=== PATIENT | female | born 1945 | race Caucasian/White ===

== ENCOUNTER 2016-09-27 18:18 | Emergency (ER) | payer MEDICARE ==
[~2016-09-27] VITALS: Ht 180.3 cm; Wt 60.9 kg
[~2016-09-27 18:18] MED LIST: HYDR-3535 PO; KCL10C PO; LEVA750T PO; MAGN400 PO; MELO15 PO; METR-1 PO
[2016-09-27 18:20] VITALS: BP 208/96; PULSE 74; RESP 20; TEMP 97.7; O2SAT 96
--- NOTE | 2016-09-27 18:39 | PD ---
HPI Chief Complaint: Skin Problem Time Seen by Provider: 18:39 Travel History International Travel<30 days: No Contact w/Intl Traveler<30days: No Traveled to known affect area: No History of Present Illness HPI 70-year-old female with history of alcoholism, bilateral lower extremity edema, chronic pain secondary to remote back fractures, presents to the emergency department for evaluation of discoloration on her buttocks. Patient is followed by home health nurse. She noticed the hyperpigmentation on the patient 's buttocks with some bumps. She sent pictures to the patient's primary care provider who advised she come to the emergency department. Patient denies any pain associated with the buttock however she states she always has back pain and rates that pain at 8/10. She has had no fever or chills. Denies any changes in bowel or bladder. States that she was fine until she found out she had come the emergency department. She has no other symptoms to report. PFSH Past Medical History Arthritis: Yes (SPINE) Autoimmune Disease: No Blood Disorders: No Anxiety: No Depression: No Cancer: No Cardiovascular Problems: No High Cholesterol: No Diabetes: No Endocrine: No Genitourinary: No Immune Disorder: No Musculoskeletal: Yes (degenerative disc disease with chronic low back pain) Neurologic: No Psychiatric: No Reproductive: No Respiratory: No Thyroid Disease: No ?: Not Past Surgical History Abdominal Surgery: No Body Medical Devices: tamika breast implants Cardiac Surgery: No Ear Surgery: No Endocrine Surgery: No Eye Surgery: No Genitourinary Surgery: No Gynecologic Surgery: Yes (hysterectomy) Hysterectomy: Yes Oral Surgery: No Thoracic Surgery: No Social History Alcohol Use: No Tobacco Use: No Substance Use: No Allergies-Medications (Allergen,Severity, Reaction): Coded Allergies: Darvocet-N 100 (Verified Allergy, Severe, nauseated, 09/27/16) when taking around the clock prn Ibuprofen (Verified Allergy, Severe, n/v, 09/27/16) when taken around the clock ok when just occasional Reported Meds & Prescriptions Reported Meds & Active Scripts Active Reported Potassium Chloride ER (Potassium Chloride) 10 Meq Cap 10 Meq PO BID Lortab (Hydrocodone-Acetaminophen) 10-325 Mg Tab 1 Tab PO Q6H PRN Review of Systems Except as stated in HPI: all other systems reviewed are Neg Physical Exam Narrative GENERAL: Chronically ill-appearing female patient, in no acute distress. SKIN: Warm and dry. HEAD: Atraumatic. Normocephalic. EYES: Pupils equal and round. No scleral icterus. No injection or drainage. ENT: No nasal bleeding or discharge. Mucous membranes pink and moist. NECK: Trachea midline. No JVD. CARDIOVASCULAR: Regular rate and rhythm. No murmur appreciated. RESPIRATORY: No accessory muscle use. Coarse to auscultation. Breath sounds equal bilaterally. GASTROINTESTINAL: Abdomen soft, non-tender. Normoactive bowel sounds. MUSCULOSKELETAL: No obvious deformities. No clubbing. No cyanosis. No edema. NEUROLOGICAL: Awake and alert. No obvious cranial nerve deficits. Motor grossly within normal limits. Normal speech. PSYCHIATRIC: Depressed mood and affect; Data Data Last Documented VS Vital Signs Date Time Temp Pulse Resp B/P Pulse Ox O2 Delivery O2 Flow Rate FiO2 09/27/16 19:02 74 18 09/27/16 18:20 97.7 208/96 96 Room Air 9 Orders Complete Blood Count With Diff (09/27/16 19:14) Prothrombin Time / Inr (Pt) (09/27/16 19:14) Act Partial Throm Time (Ptt) (09/27/16 19:14) Lactic Acid Sepsis Protocol (09/27/16 19:14) Urinalysis - C+S If Indicated (09/27/16 19:14) Chest, Single Ap (09/27/16 19:14) Basic Metabolic Panel (Bmp) (09/27/16 19:14) MDM Medical Decision Making Medical Screen Exam Complete: Yes Emergency Medical Condition: Yes Medical Record Reviewed: Yes Differential Diagnosis Hyperpigmentation versus pressure ulcer versus contact dermatitis versus wound infection versus sepsis Narrative Course 70-year-old female presents to emergency department for evaluation. Patient appears overall without distress. Her vital signs are stable. She does have area of hyperpigmentation on the buttock that has a cream over it so it is difficult to assess how here in triage. She appears chronically ill and has coarse breath sounds. Lab work is initiated for further evaluation of possible infection. Once a medical bed becomes available, patient will be transferred and care assumed by that provider. Condition: Stable Ivory Herrera Sep 27, 2016 18:39
[2016-09-27] MEDS ORDERED: POTA10CA PO (19:09)
[2016-09-27] MEDS ORDERED: HYDR-3535 PO (19:09)
--- NOTE | 2016-09-27 19:38 | RADRPT ---
EXAM DATE/TIME: 09/27/2016 19:28 [facility] COMPARISON: SPINE LUMBAR LTD (AP & LAT), May 22, 2013, 20:17. CHEST SINGLE AP, October 28, 2015, 4:47. INDICATIONS : Back pain. Cough. MEDICAL HISTORY : None. SURGICAL HISTORY : None. ENCOUNTER: Initial ACUITY: 2 days PAIN SCORE: 5/10 LOCATION: Bilateral back FINDINGS: No infiltrate, effusion or pneumothorax demonstrated. Heart size within normal limits. Thoracic aorta is tortuous. Kyphoplasty at T12 again noted. CONCLUSION: No evidence of acute cardiopulmonary disease. Rashid Murillo MD on September 27, 2016 at 19:35 Board Certified Radiologist. This report was verified electronically.
[2016-09-27 19:44] LABS: AUTOMATED NEUTROPHIL # 3.6 TH/MM3 (1.8-7.7); BASOPHIL # 0.1 TH/MM3 (0-0.2); BASOPHIL % 0.9 % (0.0-2.0); EOSINOPHIL # 0.3 TH/MM3 (0-0.4); EOSINOPHIL % 4.7 % (0.0-4.0); HEMATOCRIT 40.2 % (35.0-46.0); HEMO FLAGS DIFF FINAL; LYMPH % 30.1 % (9.0-44.0); MEAN CELL VOLUME 105.8 FL (80.0-100.0); MEAN CORPUSCULAR HEMOGLOBIN 36.8 PG (27.0-34.0); MEAN CORPUSCULAR HGB CONC 34.7 % (32.0-36.0); MONO % 9.5 % (0.0-8.0); NEUT % 54.8 % (16.0-70.0); PLATELET COUNT 269 TH/MM3 (150-450); RED CELL DISTRIBUTION WIDTH 19.4 % (11.6-17.2); WHITE BLOOD COUNT 6.6 TH/MM3 (4.0-11.0)
[2016-09-27 19:47] LABS: APTT (PATIENT) 30.8 SEC (24.3-30.1); PROTHROMBIN TIME - PATIENT 10.9 SEC (9.8-11.6)
--- NOTE | 2016-09-27 19:55 | PD ---
Physical Exam Time Seen by Provider: 19:53 Narrative 70-year-old female with history of chronic low back pain presents to the emergency department for evaluation of sacral skin wound. The patient states that 2 weeks ago she noticed some irritation and discomfort in her sacral region. The patient's states that one week ago he noticed the area was red and appeared irritated. States that she has a home health nurse who checks on her and today took a picture of the area and since it to her PCP Dr. García who sent her here to the emergency department for further evaluation of this skin abnormality. The patient has a history of chronic low back pain and right hip pain, she is status post kyphoplasty, right hip replacement and right knee arthroscopic surgery. She states that she has chronic pain in these locations that she's been dealing with for years. States that she does not ambulate well or frequently due to her pain and therefore sits on the couch for long periods of time. States that over the past few weeks she is also accidentally urinated on herself more frequently because she is unable to get up quickly enough to get to the bathroom. She denies any fever, chills, nausea , vomiting, chest pain, shortness of breath, abdominal pain, burning with urination, painful urination. Patient's states that they have been applying zinc oxide to the area for the past few days. He states that he thinks this has improved skin irritation. No other complaints. GENERAL: Well-nourished and well-developed female patient in no acute distress. SKIN: Warm and dry. There is an area of erythema to the sacrum approximately 9 cm in diameter. There are 4 small 0.5 cm crusted lesions within this area of erythema. There is no open wound or ulceration. No tenderness to palpation. No discharge or drainage. HEAD: Normocephalic and atraumatic. EYES: No injection, drainage, or hyphema noted. PERRLA. EOMI. ENT: No nasal drainage noted. Oropharynx is clear. NECK: Supple and the trachea is midline. CARDIOVASCULAR: Regular rate and rhythm. RESPIRATORY: Breath sounds are equal bilaterally with no accessory muscle use, wheezing, rhonchi, or crackles. GASTROINTESTINAL: Abdomen is soft, non-tender, and nondistended. MUSCULOSKELETAL: No obvious deformities, swelling, cyanosis, or ecchymosis is present throughout the upper and lower extremities. Patient has full range of motion without any signs of neurovascular compromise. NEUROLOGICAL: Awake, alert, and oriented. Normal speech and gait. Cranial nerves are grossly intact. Data Data Last Documented VS Vital Signs Date Time Temp Pulse Resp B/P Pulse Ox O2 Delivery O2 Flow Rate FiO2 09/27/16 19:02 74 18 09/27/16 18:20 97.7 208/96 96 Room Air 9 Orders Complete Blood Count With Diff (09/27/16 19:14) Prothrombin Time / Inr (Pt) (09/27/16 19:14) Act Partial Throm Time (Ptt) (09/27/16 19:14) Lactic Acid Sepsis Protocol (09/27/16 19:14) Urinalysis - C+S If Indicated (09/27/16 19:14) Chest, Single Ap (09/27/16 19:14) Basic Metabolic Panel (Bmp) (09/27/16 19:14) Labs Laboratory Tests Test 09/27/16 09/27/16 19:30 20:00 White Blood Count 6.6 TH/MM3 Red Blood Count 3.80 MIL/MM3 Hemoglobin 14.0 GM/DL Hematocrit 40.2 % Mean Corpuscular Volume 105.8 FL Mean Corpuscular Hemoglobin 36.8 PG Mean Corpuscular Hemoglobin 34.7 % Concent Red Cell Distribution Width 19.4 % Platelet Count 269 TH/MM3 Mean Platelet Volume 9.5 FL Neutrophils (%) (Auto) 54.8 % Lymphocytes (%) (Auto) 30.1 % Monocytes (%) (Auto) 9.5 % Eosinophils (%) (Auto) 4.7 % Basophils (%) (Auto) 0.9 % Neutrophils # (Auto) 3.6 TH/MM3 Lymphocytes # (Auto) 2.0 TH/MM3 Monocytes # (Auto) 0.6 TH/MM3 Eosinophils # (Auto) 0.3 TH/MM3 Basophils # (Auto) 0.1 TH/MM3 CBC Comment DIFF FINAL Differential Comment Prothrombin Time 10.9 SEC Prothromb Time International 1.0 RATIO Ratio Activated Partial 30.8 SEC Thromboplast Time Sodium Level 138 MEQ/L Potassium Level 3.2 MEQ/L Chloride Level 99 MEQ/L Carbon Dioxide Level 31.9 MEQ/L Anion Gap 7 MEQ/L Blood Urea Nitrogen 4 MG/DL Creatinine 0.47 MG/DL Estimat Glomerular Filtration 131 ML/MIN Rate Random Glucose 95 MG/DL Lactic Acid Level 0.8 mmol/L Calcium Level 9.1 MG/DL Urine Color YELLOW Urine Turbidity CLEAR Urine pH 6.5 Urine Specific [place] 1.006 Urine Protein NEG mg/dL Urine Glucose (UA) NEG mg/dL Urine Ketones NEG mg/dL Urine Occult Blood NEG Urine Nitrite NEG Urine Bilirubin NEG Urine Urobilinogen LESS THAN 2.0 MG/DL Urine Leukocyte Esterase NEG Urine WBC 1 /hpf Urine Squamous Epithelial <1 /hpf Cells Microscopic Urinalysis Comment CATH-CULT NOT IND MDM Supervised Visit with JUAN DIEGO: No Differential Diagnosis Skin breakdown versus ulceration versus dermatitis Narrative Course 70-year-old female presents to the emergency department for evaluation of skin irritation to sacral region for one week. Patient is afebrile, vital signs are stable. On physical examination she has only slight skin breakdown to the sacrum with no ulceration or wound. Patient was seen by provider in triage, please see their documentation. The provider in triage initiated workup by ordering lab work. CBC is unremarkable. BMP shows mild hypokalemia with a potassium of 3.2. This will be repleted with 40 mEq orally. Lactic acid is 0.8. Coags are unremarkable. Urinalysis is unremarkable. I had an extensive discussion with the patient and her about increasing her ambulation and rolling her more frequently on her side to prevent worsening ulceration. Discussed proper wound care techniques, advised to continue the zinc oxide. Advised to get a bedside commode so that she does not sit in a wet diaper for long periods of time rather is able to have easier access to using the toilet. The labs are all reassuring and there is no sign of acute infection area she does not require any antibiotic therapy at this time. Discussed signs and symptoms of when to return to the emergency department such as worsening redness, fever, chills. The patient and verbalized understanding and agreement with treatment plan. I discussed the case with my attending physician Dr. Meneses who is aware of the patients history, physical examination findings, and treatment plan. Diagnosis Primary Impression: Ulcer of sacral region, stage 1 Referrals: Primary Care Physician Patient Instructions: General Instructions, How to Prevent Pressure Ulcers (ED) , Pressure Ulcer (ED) Additional Instruction: Try to turn more frequently and alleviate pressure on your bottom. Try to keep area clean and dry. Follow-up with your Primary Care Physician. Return to the ED for any acute worsening of symptoms. Med/Other Pt SpecificInfo: No Change to Meds Disposition: 01 DISCHARGE HOME Condition: Stable Olga Wiseman Sep 27, 2016 19:55
[2016-09-27 20:05] LABS: BLOOD, URINE NEG (NEG); GLUCOSE,URINE NEG (NEG); KETONE, URINE NEG (NEG); NITRITE,URINE NEG (NEG); PH, URINE 6.5 (5.0-8.5); SQUAMOUS EPITHELIAL CELL URINE <1 /hpf (0-5); URINE COLOR YELLOW (YELLW/STRAW)
[2016-09-27 20:09] LABS: BICARBONATE 31.9 MEQ/L (21.0-32.0); POTASSIUM 3.2 MEQ/L (3.5-5.1)
[2016-09-27 20:13] LABS: COMMENT (UR) CATH-CULT NOT IND; CULTURE IF INDICATED CATH CULTURE NOT IND
== END 2016-09-27 20:39 | disposition home or self-care (01) ==
LOC: NEPC 18:18
DX: L98.419 Non-pressure chronic ulcer of buttock with unspecified severity (principal)
CPT/HCPCS: 71010; 80048; 81001; 83605; 85025; 85610; 85730

== ENCOUNTER 2016-11-30 12:24 | Inpatient (IN) | payer MEDICARE ==
[2016-11-30] VITALS (7 sets, daily range): BP systolic 135–181; BP diastolic 61–91; PULSE 77–97; RESP 18–20; TEMP 98.1–98.3; O2SAT 91–97
[~2016-11-30] VITALS: Ht 180.3 cm; Wt 65.2 kg
[~2016-11-30 12:24] MED LIST changes: -KCL10C PO; -LEVA750T PO; -MAGN400 PO; -MELO15 PO; -METR-1 PO; +POTA10CA PO
--- NOTE | 2016-11-30 12:35 | PD ---
HPI Chief Complaint: Left hip pain. Time Seen by Provider: 12:32 Travel History International Travel<30 days: No Contact w/Intl Traveler<30days: No Traveled to known affect area: No History of Present Illness HPI 70-year-old female with history of dementia is brought in by EMS with reports of left hip pain and inability to bear weight since this morning. Patient has history of hip replacement 6 years ago in [facility].. Patient's reports recent falls in the past week, the patient denies pain to any other area. No history of headache or other acute neurological complaints. Patient takes Percocet for chronic pain which she had approximately one hour ago. Patient denies anything to eat this morning. Patient denies any other acute problem. She is allergic to Darvocet and ibuprofen. PFSH Past Medical History Arthritis: Yes (SPINE) Autoimmune Disease: No Blood Disorders: No Anxiety: No Depression: No Cancer: No Cardiovascular Problems: No High Cholesterol: No Cirrhosis: Yes Diabetes: No Endocrine: No Genitourinary: No Immune Disorder: No Musculoskeletal: Yes (degenerative disc disease with chronic low back pain) Neurologic: No Psychiatric: No Reproductive: No Respiratory: No Thyroid Disease: No Past Surgical History Abdominal Surgery: No Body Medical Devices: tamika breast implants Cardiac Surgery: No Ear Surgery: No Endocrine Surgery: No Eye Surgery: No Genitourinary Surgery: No Gynecologic Surgery: Yes (hysterectomy) Hysterectomy: Yes Oral Surgery: No Thoracic Surgery: No Other Surgery: Yes (hysterectomy, bilat breast implants KYPHOPLASTY) Social History Alcohol Use: Yes (09/05/16) Tobacco Use: No Substance Use: No Allergies-Medications (Allergen,Severity, Reaction): Coded Allergies: Darvocet-N 100 (Verified Allergy, Severe, nauseated, 11/30/16) when taking around the clock prn Ibuprofen (Verified Allergy, Severe, n/v, 11/30/16) when taken around the clock ok when just occasional Reported Meds & Prescriptions Reported Meds & Active Scripts Active Reported Potassium Chloride ER (Potassium Chloride) 10 Meq Cap 10 Meq PO BID Lortab (Hydrocodone-Acetaminophen) 10-325 Mg Tab 1 Tab PO Q6H PRN Review of Systems Except as stated in HPI: all other systems reviewed are Neg General / Constitutional: No: Fever Eyes: No: Visual changes HENT: No: Headaches Cardiovascular: No: Chest Pain or Discomfort Respiratory: No: Shortness of Breath Gastrointestinal: No: Abdominal Pain Genitourinary: No: Dysuria Musculoskeletal: No: Pain Skin: No Rash Neurologic: No: Weakness Psychiatric: No: Depression Endocrine: No: Polydipsia Hematologic/Lymphatic: No: Easy Bruising Physical Exam Narrative GENERAL: Patient appears anxious and tachypneic, but able to speak in full sentences. SKIN: Warm and dry. Normal color. Normal turgor. HEAD: Atraumatic. Normocephalic. EYES: Pupils equal and round. No scleral icterus. No injection or drainage. ENT: No nasal bleeding or discharge. Mucous membranes pink and moist. NECK: Trachea midline. No JVD. Supple nontender. CARDIOVASCULAR: Regular rate and rhythm. No murmurs gallops or rubs appreciated. RESPIRATORY: No accessory muscle use. Clear to auscultation. Breath sounds equal bilaterally but diminished as well. No crackles, wheezes, rales, or rhonchi. GASTROINTESTINAL: Abdomen soft, non-tender, nondistended. Hepatic and splenic margins not palpable. MUSCULOSKELETAL: Extremities without clubbing, cyanosis, or edema. No obvious deformities. NEUROLOGICAL: Awake and alert. No obvious cranial nerve deficits. Motor grossly within normal limits. Five out of 5 muscle strength in the arms and legs. Normal speech. PSYCHIATRIC: Appropriate mood and affect; insight and judgment normal. Data Data Last Documented VS Vital Signs Date Time Temp Pulse Resp B/P Pulse Ox O2 Delivery O2 Flow Rate FiO2 11/30/16 14:40 97 18 181/79 97 Room Air 11/30/16 12:32 98.3 Orders Electrocardiogram (11/30/16 12:36) Complete Blood Count With Diff (11/30/16 12:36) Comprehensive Metabolic Panel (11/30/16 12:36) Prothrombin Time / Inr (Pt) (11/30/16 12:36) Act Partial Throm Time (Ptt) (11/30/16 12:36) Iv Access Insert/Monitor (11/30/16 12:36) Oximetry (11/30/16 12:36) Ice/Cold Pack (11/30/16 12:36) Ecg Monitoring (11/30/16 12:36) Sodium Chloride 0.9% Flush (Ns Flush) (11/30/16 12:45) Femur (Ap & Lat/2vws) (11/30/16 12:36) Pelvis, Ap Only (Routine) (11/30/16 ) Morphine Inj (Morphine Inj) (11/30/16 13:45) Potassium Chlor 20 Meq Premix (Kcl 20 Me (11/30/16 14:15) Potassium Chloride (Kcl) (11/30/16 14:15) Potassium Chloride (Kcl) (11/30/16 15:00) Magnesium (Mg) (11/30/16 14:51) Potassium Chlor 20 Meq Premix (Kcl 20 Me (11/30/16 15:00) Basic Metabolic Panel (Bmp) (11/30/16 22:00) Magnesium (Mg) (11/30/16 22:00) ^ Other Nursing Orders (11/30/16 14:51) Admit Order (Ed Use Only) (11/30/16 14:53) Labs Laboratory Tests Test 11/30/16 12:50 White Blood Count 7.5 TH/MM3 Red Blood Count 4.29 MIL/MM3 Hemoglobin 14.9 GM/DL Hematocrit 43.8 % Mean Corpuscular Volume 102.1 FL Mean Corpuscular Hemoglobin 34.7 PG Mean Corpuscular Hemoglobin 34.0 % Concent Red Cell Distribution Width 18.9 % Platelet Count 240 TH/MM3 Mean Platelet Volume 9.0 FL Neutrophils (%) (Auto) 72.1 % Lymphocytes (%) (Auto) 16.9 % Monocytes (%) (Auto) 10.1 % Eosinophils (%) (Auto) 0.3 % Basophils (%) (Auto) 0.6 % Neutrophils # (Auto) 5.4 TH/MM3 Lymphocytes # (Auto) 1.3 TH/MM3 Monocytes # (Auto) 0.8 TH/MM3 Eosinophils # (Auto) 0.0 TH/MM3 Basophils # (Auto) 0.0 TH/MM3 CBC Comment DIFF FINAL Differential Comment Prothrombin Time 11.7 SEC Prothromb Time International 1.1 RATIO Ratio Activated Partial 29.1 SEC Thromboplast Time Sodium Level 137 MEQ/L Potassium Level 2.3 MEQ/L Chloride Level 91 MEQ/L Carbon Dioxide Level 40.0 MEQ/L Anion Gap 6 MEQ/L Blood Urea Nitrogen 6 MG/DL Creatinine 0.51 MG/DL Estimat Glomerular Filtration 120 ML/MIN Rate Random Glucose 98 MG/DL Calcium Level 8.6 MG/DL Total Bilirubin 1.5 MG/DL Aspartate Amino Transf 21 U/L (AST/SGOT) Alanine Aminotransferase 17 U/L (ALT/SGPT) Alkaline Phosphatase 131 U/L Total Protein 7.5 GM/DL Albumin 3.3 GM/DL [facility] Medical Decision Making Medical Screen Exam Complete: Yes Emergency Medical Condition: Yes Medical Record Reviewed: Yes Differential Diagnosis Left hip and leg pain. Recurrent falls. History of left hip replacement. Possible hip dislocation. Possible fracture. Narrative Course Patient is medically stable at time of exam. X-rays of the left hip/pelvis and femur are ordered. EKG and chest x-ray are ordered. Patient is kept nothing by mouth. Laboratory CBC CMP, PT/PTT and INR. IV access is obtained patient is given 4 mg morphine IV. Chest x-ray and EKG are unremarkable. CBC is unremarkable. CMP is remarkable for a potassium of 2.3. Patient has history of low potassium in the past. Patient is given 20 mEq potassium by mouth as well as 20 mEq of potassium IV. X-ray shows nondisplaced fracture of the left femur. 1400 hrs. call was placed to Dr. Hdz the orthopedic on-call to discuss the patient. Patient is discussed with Dr. Chow, who recommends admitting the patient medically while waiting for orthopedic to call back. [address]30 [address] patient discussed with Dr. Hdz who recommends admission, and nothing by mouth after midnight. 1450 hrs. patient discussed with hospitalist who agrees to admit the patient. Diagnosis Primary Impression: Left femoral shaft fracture Qualified Code: S72.335A - Closed nondisplaced oblique fracture of shaft of left femur, initial encounter Additional Impression: Hypopotassemia Admitting Information Admitting Physician Requests: Admit Condition: Stable Michael Russo Nov 30, 2016 12:35
[2016-11-30] MEDS ORDERED: SODIUM CHLORIDE 0.9% FLUSH 10 ML FLUSH IVF PRN (12:45)
[2016-11-30 13:07] LABS: AUTOMATED NEUTROPHIL # 5.4 TH/MM3 (1.8-7.7); BASOPHIL % 0.6 % (0.0-2.0); EOSINOPHIL % 0.3 % (0.0-4.0); HEMATOCRIT 43.8 % (35.0-46.0); HEMO FLAGS DIFF FINAL; LYMPH % 16.9 % (9.0-44.0); LYMPHOCYTE # 1.3 TH/MM3 (1.0-4.8); MEAN CELL VOLUME 102.1 FL (80.0-100.0); MEAN CORPUSCULAR HEMOGLOBIN 34.7 PG (27.0-34.0); MONO % 10.1 % (0.0-8.0); NEUT % 72.1 % (16.0-70.0); PLATELET COUNT 240 TH/MM3 (150-450); RED BLOOD COUNT 4.29 MIL/MM3 (4.00-5.30); RED CELL DISTRIBUTION WIDTH 18.9 % (11.6-17.2); WHITE BLOOD COUNT 7.5 TH/MM3 (4.0-11.0)
[2016-11-30 13:14] LABS: APTT (PATIENT) 29.1 SEC (24.3-30.1); INTERNATIONAL NORMALIZED RATIO 1.1 RATIO; PROTHROMBIN TIME - PATIENT 11.7 SEC (9.8-11.6)
[2016-11-30 13:27] LABS: ALKALINE PHOSPHATASE 131 U/L (45-117); ALT (GPT) 17 U/L (10-53); ANION GAP 6 MEQ/L (5-15); AST (GOT) 21 U/L (15-37); BLOOD UREA NITROGEN 6 MG/DL (7-18); CHLORIDE 91 MEQ/L (98-107); GLOMERULAR FILTRATION RATE 120 ML/MIN (>89); SODIUM (NA) 137 MEQ/L (136-145); TOTAL BILIRUBIN ADULT 1.5 MG/DL (0.2-1.0)
[2016-11-30 13:30] LABS: POTASSIUM 2.3 MEQ/L (3.5-5.1)
[2016-11-30] MEDS ORDERED: MORPHINE SULFATE 4 MG/ML INJ IM ONE (13:45)
--- NOTE | 2016-11-30 13:58 | RADRPT ---
EXAM DATE/TIME: 11/30/2016 13:07 [facility] COMPARISON: No previous studies available for comparison. INDICATIONS : Pelvic pain after a fall.. MEDICAL HISTORY : None. SURGICAL HISTORY : left hip replacement 8-9 years ago. ENCOUNTER: Initial ACUITY: 1 day PAIN SCORE: 8/10 LOCATION: Bilateral pelvis FINDINGS: A single AP view of the pelvis was obtained and demonstrates the patient is status post left hip arth roplasty. The components are intact and in normal alignment. There is mild osteopenia with no acute f racture or malalignment. The pubic rami and right hip are intact. The sacrum appears unremarkable. Th ere is mild scoliosis and degenerative disc change involving the lower lumbar spine. CONCLUSION: Negative trauma study. El Monae MD on November 30, 2016 at 13:55 Board Certified Radiologist. This report was verified electronically.
--- NOTE | 2016-11-30 14:01 | RADRPT ---
EXAM DATE/TIME: 11/30/2016 13:07 [facility] COMPARISON: PELVIS AP ONLY, November 30, 2016, 13:07. INDICATIONS : Falling alot. MEDICAL HISTORY : None. SURGICAL HISTORY : left hip replacement 8-9 years ago. ENCOUNTER: Initial ACUITY: 1 day PAIN SCORE: 8/10 LOCATION: Left femur FINDINGS: AP and oblique views of the left hip were obtained and demonstrate a subtle nondisplaced fracture. Th ere is a cortical break and step-off noted laterally just below the greater trochanter. Below the pro sthesis there is an ill-defined nondisplaced fracture line. The patient is status post left hip arthr oplasty. There is mild osteopenia. CONCLUSION: Subtle nondisplaced femur fracture. El Monae MD on November 30, 2016 at 13:56 Board Certified Radiologist. This report was verified electronically.
[2016-11-30] MEDS ORDERED: POTASSIUM CHLORIDE 20 MEQ CONTROLLED RELEASE TAB PO ONE (14:15)
[2016-11-30] MEDS ORDERED: POTASSIUM CHLOR 20 MEQ PREMIX 100 ML IV ONE (14:15)
[2016-11-30] MEDS ORDERED: ACETAMINOPHEN 325 MG TAB PO PRN ×2 (15:00)
[2016-11-30] MEDS ORDERED: POTASSIUM CHLORIDE 10 MEQ CAP PO SCH (15:00)
[2016-11-30] MEDS ORDERED: ONDANSETRON HCL 4 MG/2 ML VIAL IVP PRN (15:00)
[2016-11-30] MEDS ORDERED: NALOXONE HCL 0.4 MG/ML AMP IV PRN (15:00)
[2016-11-30] MEDS ORDERED: ENALAPRILAT 1.25 MG/ML VIAL IV PRN (15:00)
[2016-11-30] MEDS ORDERED: ACETAMINOPHEN/HYDROcodone 325 MG/5 MG TAB PO PRN (15:00)
[2016-11-30] MEDS ORDERED: cloNIDine HCL 0.1 MG TAB PO PRN (15:00)
[2016-11-30] MEDS ORDERED: hydrALAZINE HCL 20 MG/ML VIAL IV PRN (15:00)
[2016-11-30] MEDS ORDERED: SODIUM CHLORIDE 0.9% FLUSH 10 ML FLUSH IV FLUSH PRN (15:00)
[2016-11-30] MEDS: DOCUSATE SODIUM 100 MG CAP PO SCH (15:00)
[2016-11-30] MEDS ORDERED: MORPHINE SULFATE 4 MG/ML INJ IV PRN ×2 (15:00)
[2016-11-30] MEDS ORDERED: BISACODYL 10 MG SUPP RECTAL PRN (15:00)
[2016-11-30 16:16] LABS: MAGNESIUM 1.8 MG/DL (1.5-2.5)
[2016-11-30] MEDS: POTASSIUM CHLOR 20 MEQ PREMIX 100 ML IV SCH ×2 (17:13→19:45)
[2016-11-30] MEDS ORDERED: LORazepam 1 MG TAB PO PRN (17:15)
[2016-11-30] MEDS ORDERED: LORazepam 2 MG TAB PO PRN (17:15)
[2016-11-30] MEDS ORDERED: POTASSIUM CHLORIDE 25 MEQ EFFERVESCENT TAB PO ONE (17:15)
[2016-11-30] MEDS ORDERED: HALOPERIDOL LACTATE 5 MG/ML AMP IM PRN (17:15)
[2016-11-30] MEDS ORDERED: FLUMAZENIL 0.5 MG/5 ML VIAL IV PUSH PRN (17:15)
[2016-11-30] MEDS ORDERED: LORazepam 2 MG/ML VIAL IV PUSH PRN ×4 (17:15)
--- NOTE | 2016-11-30 17:52 | HHI.HP ---
. HPI Service [facility] Primary Care Physician Shant García MD Admission Diagnosis Left Femur Fracture/Low Potassium Diagnoses: Chief Complaint: Left leg pain and inability to bear weight Travel History International Travel<30 Days: No Contact w/Intl Traveler <30 Da: No Traveled to Known Affected Are: No Sepsis Criteria SIRS Criteria (2 or more): Heart rate over 90 History of Present Illness Mrs. Patel is a 70-year-old female with a known medical history of alcohol abuse, occasional memory impairment, right hip replacement, and chronic pain due to degenerative disc disease s/p kyphoplasty who presented to the emergency department with complaints of left hip pain and inability to bear weight after sustaining a fall at home. Per at bedside, the patient has been unsteady for quite some time, requiring the use of home physical therapy and home health to increase strength. He states that the patient has fallen three times in the past week with most recent fall being last night, 11/30. Patient's was able to get patient to the couch after the fall to sleep through the night but when awoken this morning patient was unable to bear weight and was in severe pain, therefore EVAC was called. Denies any associated dizziness , nausea, vomiting, or loss of consciousness. Per , patient has been drinking alcohol for many years and has attempted to stop drinking for the past month and a half, but has recently started again. Per patient, last drink was two days ago. Denies any recent fever, chills, cough, chest pain, palpitations and shortness of breath. Review of Systems Constitutional: COMPLAINS OF: Dizziness Musculoskeletal: COMPLAINS OF: Back pain Neurologic: COMPLAINS OF: Poor Balance Psychiatric: COMPLAINS OF: Confusion Except as stated in HPI: all other systems reviewed are Neg Past Family Social History Past Medical History Degenerative disc disease with chronic low back pain Alcohol abuse. Denies history of cirrhosis History of tobacco use Past Surgical History Right hip replacement Hysterectomy Kyphoplasty Bilateral breast implants Reported Medications Active Reported Potassium Chloride ER (Potassium Chloride) 10 Meq Cap 10 Meq PO BID Lortab (Hydrocodone-Acetaminophen) 10-325 Mg Tab 1 Tab PO Q6H PRN Allergies: Coded Allergies: Darvocet-N 100 (Verified Allergy, Severe, nauseated, 11/30/16) when taking around the clock prn Ibuprofen (Verified Allergy, Severe, n/v, 11/30/16) when taken around the clock ok when just occasional Active Ordered Medications Current Medications Medications (Trade) Dose Ordered Sig/Martin Route Start Time Stop Time Status Last Admin Sodium Chloride 2 ml 2 ml UNSCH PRN IVF 11/30/16 12:45 (KCl 20 Meq Premix Inj) 100 ml @ 50 mls/hr Q2H IV 11/30/16 15:00 11/30/16 18:59 (NS Flush) 2 ml UNSCH PRN IV FLUSH 11/30/16 15:00 (NS Flush) 2 ml BID IV FLUSH 11/30/16 21:00 (Tylenol) 650 mg Q4H PRN PO 11/30/16 15:00 (Zofran Inj) 4 mg Q6H PRN IVP 11/30/16 15:00 (Dulcolax Supp) 10 mg DAILY PRN RECTAL 11/30/16 15:00 (Colace) 100 mg Q12H PO 11/30/16 15:00 (Tylenol) 650 mg Q6H PRN PO 11/30/16 15:00 ([place] 5-325 Mg) 1 tab Q4H PRN PO 11/30/16 15:00 ([place] 10-325 Mg) 1 tab Q4H PRN PO 11/30/16 15:00 (Morphine Inj) 1 mg Q3H PRN IV 11/30/16 15:00 (Morphine Inj) 2 mg Q3H PRN IV 11/30/16 15:00 (Morphine Inj) 2 mg Q3H PRN IV 11/30/16 15:00 (Narcan Inj) 0.4 mg UNSCH PRN IV 11/30/16 15:00 (Vasotec Inj) 1.25 mg Q6H PRN IV 11/30/16 15:00 (Apresoline Inj) 10 mg Q6H PRN IV 11/30/16 15:00 (Catapres) 0.1 mg Q6H PRN PO 11/30/16 15:00 (K-Lyte Cl Eff) 25 meq Q12HR PO 12/01/16 07:00 UNV (K-Lyte Cl Eff) 25 meq ONCE ONCE PO 11/30/16 17:15 11/30/16 17:16 UNV (Folate) 1 mg DAILY PO 12/01/16 09:00 12/06/16 08:59 UNV (Vitamin B1) 100 mg DAILY PO 12/01/16 09:00 UNV (Theragran M Tab) 1 tab DAILY PO 12/01/16 09:00 12/06/16 08:59 UNV (Romazicon Inj) 0.2 mg Q1M PRN IV PUSH 11/30/16 17:15 UNV (Ativan) 1 mg Q4H PRN PO 11/30/16 17:15 UNV (Ativan Inj) 1 mg Q4H PRN IV PUSH 11/30/16 17:15 UNV (Ativan) 2 mg Q2H PRN PO 11/30/16 17:15 UNV (Ativan Inj) 2 mg Q2H PRN IV PUSH 11/30/16 17:15 UNV (Ativan Inj) 2 mg Q1H PRN IV PUSH 11/30/16 17:15 UNV (Ativan Inj) 2 mg Q15M PRN IV PUSH 11/30/16 17:15 UNV (Haldol Inj) 2 mg Q15M PRN IM 11/30/16 17:15 UNV Family History Denies any significant family medical history including cardiovascular disease or pulmonary disease. Social History Patient lives at home with . Denies any current tobacco use. Does drink alcohol daily, last drink was two days ago. Physical Exam Vital Signs Vital Signs Date Time Temp Pulse Resp B/P Pulse Ox O2 Delivery O2 Flow Rate FiO2 11/30/16 15:55 92 21 11/30/16 14:40 97 18 181/79 97 Room Air 11/30/16 12:41 18 97 Room Air 11/30/16 12:37 82 20 11/30/16 12:37 77 18 173/91 97 Room Air 11/30/16 12:32 98.3 80 20 173/91 97 Physical Exam GENERAL: Well-nourished, well-developed female patient in moderate pain due to femur fracture. SKIN: Warm and dry. No rash. Bilateral lower extremity erythema noted. HEENT: Normocephalic. Atraumatic. Pupils equal and round. No scleral icterus. No injection or drainage. No nasal bleeding or discharge. Mucous membranes pink and moist. Supple. Trachea midline. CARDIOVASCULAR: Regular rate and rhythm. S1, S2 noted. No murmur appreciated. RESPIRATORY: No accessory muscle use. CTA. Breath sounds equal bilaterally. GASTROINTESTINAL: Abdomen soft, non-tender, nondistended. Normoactive bowel sounds x4. MUSCULOSKELETAL: No obvious deformities. Extremities without clubbing, cyanosis , or edema. NEUROLOGICAL: Awake and alert. No obvious cranial nerve deficits. Motor grossly within normal limits. 5/5 muscle strength in bilateral upper and lower extremities. Normal speech. Laboratory Laboratory Tests Test 11/30/16 12:50 White Blood Count 7.5 Red Blood Count 4.29 Hemoglobin 14.9 Hematocrit 43.8 Mean Corpuscular Volume 102.1 Mean Corpuscular Hemoglobin 34.7 Mean Corpuscular Hemoglobin 34.0 Concent Red Cell Distribution Width 18.9 Platelet Count 240 Mean Platelet Volume 9.0 Neutrophils (%) (Auto) 72.1 Lymphocytes (%) (Auto) 16.9 Monocytes (%) (Auto) 10.1 Eosinophils (%) (Auto) 0.3 Basophils (%) (Auto) 0.6 Neutrophils # (Auto) 5.4 Lymphocytes # (Auto) 1.3 Monocytes # (Auto) 0.8 Eosinophils # (Auto) 0.0 Basophils # (Auto) 0.0 CBC Comment DIFF FINAL Differential Comment Prothrombin Time 11.7 Prothromb Time International 1.1 Ratio Activated Partial 29.1 Thromboplast Time Sodium Level 137 Potassium Level 2.3 Chloride Level 91 Carbon Dioxide Level 40.0 Anion Gap 6 Blood Urea Nitrogen 6 Creatinine 0.51 Estimat Glomerular Filtration 120 Rate Random Glucose 98 Calcium Level 8.6 Magnesium Level 1.8 Total Bilirubin 1.5 Aspartate Amino Transf 21 (AST/SGOT) Alanine Aminotransferase 17 (ALT/SGPT) Alkaline Phosphatase 131 Total Protein 7.5 Albumin 3.3 Result Diagram: 11/30/16 1250 11/30/16 1250 Imaging Last Impressions Femur X-Ray 11/30/16 1236 Signed Impressions: Service Date/Time: November 13:07 - CONCLUSION: Subtle nondisplaced femur fracture. El Monae MD Pelvis X-Ray 11/30/16 0000 Signed Impressions: Service Date/Time: November 13:07 - CONCLUSION: Negative trauma study. El Monae MD Assessment and Plan Problem List: (1) Left femoral shaft fracture ICD Code: S72.302A Status: Acute (2) Hypopotassemia ICD Code: E87.6 Status: Acute Assessment and Plan Mrs. Patel is a 70-year-old female with a known medical history of alcohol abuse,occasional memory impairment, right hip replacement, and chronic pain due to degenerative disc disease s/p kyphoplasty who presented to the emergency department with complaints of left hip pain and inability to bear weight after sustaining a fall at home. Left femur fracture - Femur x-ray report reviewed, subtotal left nondisplaced femur fracture. Pelvis x-ray negative. Imaging studies personally reviewed by tn - Orthopedic surgeon consulted, appreciate input. Possible surgery in a.m. NPO after midnight. - Control pain [place] per pain scale, morphine PRN breakthrough pain. Chronic alcohol abuse with associated macrocytosis, hypoalbuminemia and hyperbilirubinemia - CIWA protocol. Ativan PRN per protocol. - MCV 102.1, Total bilirubin 1.5, Albumin 3.3 - Start patient on scheduled folic acid, thiamine, and multivitamin. - Monitor for withdrawal symptoms. - Seizure precautions. Hypertension likely secondary to pain, improved. - Vasotec, hydralazine and clonidine PRN. - Monitor closely. Chronic low back pain s/p history of kyphoplasty: Control pain [place] per pain scale, morphine PRN breakthrough pain. Recurrent falls: Fall precautions Hypokalemia likely secondary to chronic alcohol abuse. - Patient on potassium replacement at home but has not been compliant. - Give total of 60 vignesh potassium IV and K-lyte 25 meq PO x 1 and scheduled BID. - Continue cardiac telemetry. - EKG reviewed, no arrhythmias noted. - BMP tonight and in a.m. DVT prophylaxis: SCDs Written by Jordana Rice, acting as scribe for Dr. Sellers on 11/30/16 at 17:27. This note was transcribed by scribe Jordana Rice. I, Dr. Marlon Sellers personally performed the history, physical exam, and medical decision making; and confirmed the accuracy of the information in the transcribed note. Authenticated by Dr. Marlon Sellers on 11/30/16 at 18:18. Discussed Condition With Patient Dr. Sellers Physician Certification 2 Midnight Certification Type: Admission for Inpatient Services Order for Inpatient Services The services are ordered in accordance with Medicare regulations or non- Medicare payer requirements, as applicable. In the case of services not specified as inpatient-only, they are appropriately provided as inpatient services in accordance with the 2-midnight benchmark. Estimated LOS (days): 2 days is the estimated time the patient will need to remain in the hospital, assuming treatment plan goals are met and no additional complications. Post-Hospital Plan: Home Problem Qualifiers (1) Left femoral shaft fracture: Qualified Code: S72.335A - Closed nondisplaced oblique fracture of shaft of left femur, initial encounter Jordana Rice Nov 30, 2016 17:52 Marlon Sellers MD Nov 30, 2016 18:19
--- NOTE | 2016-11-30 18:30 | EKG ---
Date Performed: 11/30/2016 Time Performed: 12:48:26 PTAGE: 70 years EKG: BASELINE ARTIFACT PRESENT. Sinus rhythm WITH FREQUENT SUPRAVENTRICULAR PREMATURE COMPLEXES NONSPECIFIC ST & T-WAVE ABNORMALITY ABNORMAL RHYT HM ECG NO SIGNIFICANT CHANGE FROM PRIOR ELECTROCARDIOGRAM. PREVIOUS TRACING : 10/29/2015 16.07 DOCTOR: Tray Cabral Interpretating Date/Time 11/30/2016 18:30:20
[2016-11-30] MEDS: MORPHINE SULFATE 4 MG/ML INJ IV PRN (18:36)
[2016-12-01] VITALS (8 sets, daily range): BP systolic 120–174; BP diastolic 70–90; PULSE 71–91; RESP 16–20; TEMP 97–97.7; O2SAT 93–98
[2016-12-01 00:42] LABS: BICARBONATE 34.1 MEQ/L (21.0-32.0); MAGNESIUM 1.4 MG/DL (1.5-2.5)
[2016-12-01 00:43] LABS: POTASSIUM 2.8 MEQ/L (3.5-5.1)
[2016-12-01] MEDS: MAGNESIUM SULFATE 1 GM PREMIX 100 ML IV SCH ×2 (01:09→02:52)
[2016-12-01] MEDS: DOCUSATE SODIUM 100 MG CAP PO SCH ×2 (01:10→13:49)
[2016-12-01] MEDS: POTASSIUM CHLOR 20 MEQ PREMIX 100 ML IV SCH ×2 (01:57→03:58)
[2016-12-01] MEDS: ACETAMINOPHEN/HYDROcodone 325 MG/10 MG TAB PO PRN ×4 (02:56→19:33)
[2016-12-01 06:23] LABS: BICARBONATE 33.2 MEQ/L (21.0-32.0); POTASSIUM 3.3 MEQ/L (3.5-5.1)
--- NOTE | 2016-12-01 06:50 | PD.ORT.PN ---
Subjective Subjective Remarks Yari is a 70-year-old female who is had multiple recent falls. She has some intermittent confusion. Complains of left thigh and hip pain. History of left total hip arthroplasty several years ago Objective Vitals Vital Signs Date Time Temp Pulse Resp B/P Pulse Ox O2 Delivery O2 Flow Rate FiO2 12/01/16 04:00 97.6 87 20 136/84 93 12/01/16 00:00 97.0 91 18 136/71 93 11/30/16 20:00 98.1 89 18 143/65 91 11/30/16 18:25 Room Air 11/30/16 17:43 87 18 135/61 94 Room Air 11/30/16 15:55 92 21 11/30/16 14:40 97 18 181/79 97 Room Air 11/30/16 12:41 18 97 Room Air 11/30/16 12:37 82 20 11/30/16 12:37 77 18 173/91 97 Room Air 11/30/16 12:32 98.3 80 20 173/91 97 I/O 11/30/16 11/30/16 11/30/16 12/01/16 12/01/16 12/01/16 07:00 15:00 23:00 07:00 15:00 23:00 Intake Total 480 ml 100 ml Balance 480 ml 100 ml Intake Oral 480 ml 100 ml # Voids 2 1 # Bowel Movements 0 0 Result Diagram: 11/30/16 1250 12/01/16 0510 Other Results Laboratory Tests Test 11/30/16 12:50 Prothrombin Time 11.7 SEC (9.8-11.6) Prothromb Time International 1.1 RATIO Ratio Imaging Last 24 hours Impressions Femur X-Ray 11/30/16 1236 Signed Impressions: Service Date/Time: November 13:07 - CONCLUSION: Subtle nondisplaced femur fracture. El Monae MD Objective Remarks Yari is awake and alert. No pain with bilateral arm motion. No pain with right hip or knee motion. Pain with left hip motion. No tenderness to palpation left knee or ankle. Tender to palpation left proximal femur. Sensation intact bilateral lower extremity. Assessment & Plan Assessment and Plan Yari has a nondisplaced left hip periprosthetic fracture. Currently fracture is completely nondisplaced. Treatment options were discussed with her including surgical open reduction internal fixation versus nonsurgical treatment. She would like to avoid surgery if at all possible. She will need to be nonweightbearing on left leg. She should not do any strengthening her quad sets left leg. She understands that if fracture displaces, surgery will become necessary. She will need to follow-up with orthopedics in 1 week for repeat x-rays of left femur. She'll likely need to go to a [facility] facility. Brad Lira MD Dec 01, 2016 06:50
[2016-12-01] MEDS: POTASSIUM CHLORIDE 25 MEQ EFFERVESCENT TAB PO SCH ×3 (07:00→19:33)
[2016-12-01] MEDS: THIAMINE HCL 100 MG TAB PO SCH (08:53)
[2016-12-01] MEDS: FOLIC ACID 1 MG TAB PO SCH (08:54)
[2016-12-01] MEDS: RIVAROXABAN 10 MG TAB PO SCH (08:54)
[2016-12-01] MEDS: MULTIVITAMINS/MINERALS THERAPEUTIC TAB PO SCH (08:58)
[2016-12-01] MEDS: SODIUM CHLORIDE 0.9% FLUSH 10 ML FLUSH IV FLUSH SCH ×2 (09:00→19:35)
--- NOTE | 2016-12-01 09:33 | MB ---
cc: MARLON SELLERS MD, TODD DATE OF CONSULTATION: 12/01/2016 REASON FOR CONSULTATION Left femur periprosthetic fracture. CONSULTING PHYSICIAN Dr. Marlon Sellers HISTORY OF PRESENT ILLNESS Yari is a 70-year-old female who has multiple medical problems. She has a history of alcohol abuse. She also has some memory impairment. She had a left hip replacement performed by Dr. Webster approximately 5 years ago. She states that she has poor balance and has had frequent falls. She has had approximately three falls this week. She has complained of left hip pain. She was unable to bear weight on her left leg. She presented to the emergency room. X-rays in the emergency room revealed a nondisplaced left proximal femur periprosthetic fracture. She is currently awake and alert on the orthopedic floor. Her only complaint is her left hip. Pain is worse with any motion. She has minimal pain at rest. She does not clearly recall the fall. She is unable to recall if she had an dizziness or syncope. PAST MEDICAL HISTORY ILLNESSES 1. Degenerative disc disease. 2. Chronic back pain. 3. Alcohol abuse. 4. History of liver cirrhosis. 5. Tobacco abuse. SURGERIES 1. Left hip replacement. 2. Hysterectomy. 3. Kyphoplasty. 4. Breast implants. MEDICATIONS 1. Potassium. 2. Lortab. ALLERGIES 1. DARVOCET. 2. IBUPROFEN. FAMILY HISTORY Noncontributory. SOCIAL HISTORY The patient lives at home with her . She denies current tobacco use. She does drink alcohol most days. REVIEW OF SYSTEMS The patient denies headache, visual changes, neck pain, chest pain, shortness of breath, abdominal pain, nausea, vomiting or recent weight loss or numbness and tingling of extremities. She complains of left hip pain. She is unable to bear weight. PHYSICAL EXAMINATION GENERAL: The patient is a thin 70-year-old female who is awake. She answers most questions appropriately. She does have some mild confusion and does not clearly recall her falls. VITAL SIGNS: Temperature 97.4, pulse 71, respirations 18, blood pressure 132/79, O2 sat 96% on room air. HEAD: The patient is normocephalic. Pupils are equal. NECK: Soft, nontender. Trachea is midline. ABDOMEN: Soft, nontender, nondistended. EXTREMITIES: Examination of bilateral upper extremities reveals no pain with shoulder, elbow or wrist motion. She has intact sensation in all fingers. Radial pulses are palpable. Skin is intact in both hands. Examination of right leg reveals no significant pain with hip, knee or ankle motion. Skin is intact. Dorsalis pedis pulse is palpable. Sensation is intact in all fingers. Examination of left leg reveals pain with any attempted hip motion. She is diffusely tender around the greater trochanter and proximal femur. She has minimal tenderness around her knee, tibia and ankle. Skin is intact. Dorsalis pedis pulse is palpable. X-RAYS X-rays of left femur were reviewed. X-rays reveal a well-placed left total hip arthroplasty. She does have a nondisplaced fracture that extends below the greater trochanter and extends down to the midshaft femur. Alignment is anatomic with no evidence of displacement. IMPRESSION Nondisplaced left proximal femur periprosthetic fracture. PLAN The treatment options were discussed with the patient including surgical and nonsurgical options. Surgical option would be open reduction, internal fixation with plate and screws of left femur. Nonsurgical options would include non-weightbearing with use of a wheelchair. The patient states that she would very much like to avoid surgery if at all possible. She understands that if fracture displaces surgical intervention would become necessary. The patient may not bear any weight on her left leg. If she falls or bears weight on her leg the fracture will likely displace. All questions answered. I would recommend follow-up x-rays in one week. I will consult physical therapy for safety evaluation and wheelchair training. A mid-level provider in my office, nurse practitioner or PA, may see this patient on a follow-up basis and continue to implement the objective of this plan including: Starting or adjusting medications, injections of muscle, tendon, bursa or joints, cast application, orthotic or brace application, physical therapy, further radiographic studies including x-ray, MRI, CT, ultrasounds or bone scan, vascular studies, neurologic studies, or other specialist consultations, and proceeding with surgical management as appropriate. MD MYRA Cowan/MELY /9:12 AM /9:24 AM
[2016-12-01] MEDS ORDERED: HYDR-3583 PO (12:23)
--- NOTE | 2016-12-01 12:23 | HHI.PR ---
Subjective Remarks Follow-up hip fracture. She refused surgery. Reports pain is under control. Discussed with RN and test case developer Objective Vitals Vital Signs Date Time Temp Pulse Resp B/P Pulse Ox O2 Delivery O2 Flow Rate FiO2 12/01/16 10:00 97.0 73 18 129/70 97 12/01/16 08:00 97.4 71 18 132/79 96 12/01/16 07:40 Room Air 12/01/16 04:00 97.6 87 20 136/84 93 12/01/16 00:00 97.0 91 18 136/71 93 11/30/16 20:00 98.1 89 18 143/65 91 11/30/16 18:25 Room Air 11/30/16 17:43 87 18 135/61 94 Room Air 11/30/16 15:55 92 21 11/30/16 14:40 97 18 181/79 97 Room Air 11/30/16 12:41 18 97 Room Air 11/30/16 12:37 82 20 11/30/16 12:37 77 18 173/91 97 Room Air 11/30/16 12:32 98.3 80 20 173/91 97 I/O 11/30/16 11/30/16 11/30/16 12/01/16 12/01/16 12/01/16 07:00 15:00 23:00 07:00 15:00 23:00 Intake Total 480 ml 100 ml Balance 480 ml 100 ml Intake Oral 480 ml 100 ml # Voids 2 1 # Bowel Movements 0 0 Result Diagram: 11/30/16 1250 12/01/16 0510 Imaging Last Impressions Femur X-Ray 11/30/16 1236 Signed Impressions: Service Date/Time: November 13:07 - CONCLUSION: Subtle nondisplaced femur fracture. El Monae MD Pelvis X-Ray 11/30/16 0000 Signed Impressions: Service Date/Time: November 13:07 - CONCLUSION: Negative trauma study. El Monae MD Objective Remarks GENERAL: Well-nourished, well-developed female patient in no distress SKIN: Warm and dry. No rash. Bilateral lower extremity erythema noted. HEENT: Normocephalic. Atraumatic. Pupils equal and round. No scleral icterus. No injection or drainage. No nasal bleeding or discharge. Mucous membranes pink and moist. Supple. Trachea midline. CARDIOVASCULAR: Regular rate and rhythm. S1, S2 noted. No murmur appreciated. RESPIRATORY: No accessory muscle use. CTA. Breath sounds equal bilaterally. GASTROINTESTINAL: Abdomen soft, non-tender, nondistended. Normoactive bowel sounds x4. MUSCULOSKELETAL: No obvious deformities. Extremities without clubbing, cyanosis , or edema. NEUROLOGICAL: Awake and alert. No obvious cranial nerve deficits. Motor grossly within normal limits. 5/5 muscle strength in bilateral upper and lower extremities. Normal speech. Procedures none A/P Problem List: (1) Left femoral shaft fracture ICD Code: S72.302A Status: Acute (2) Hypopotassemia ICD Code: E87.6 Status: Acute Assessment and Plan Mrs. Patel is a 70-year-old female with a known medical history of alcohol abuse,occasional memory impairment, right hip replacement, and chronic pain due to degenerative disc disease s/p kyphoplasty who presented to the emergency department with complaints of left hip pain and inability to bear weight after sustaining a fall at home. Left femur fracture - Femur x-ray report reviewed, subtotal left nondisplaced femur fracture. Pelvis x-ray negative. Imaging studies personally reviewed by ms - Orthopedic surgeon consulted, appreciate input. Refused surgery. Started on Xarelto for DVT prophylaxis - Control pain [place] per pain scale, morphine PRN breakthrough pain. Chronic alcohol abuse with associated macrocytosis, hypoalbuminemia and hyperbilirubinemia - [place] protocol. Ativan PRN per protocol. - MCV 102.1, Total bilirubin 1.5, Albumin 3.3 - Continue scheduled folic acid, thiamine, and multivitamin. - Monitor for withdrawal symptoms. - Seizure precautions. Hypertension likely secondary to pain, improved. - Vasotec, hydralazine and clonidine PRN. - Monitor closely. Chronic low back pain s/p history of kyphoplasty: Control pain [place] per pain scale, morphine PRN breakthrough pain. Recurrent falls: Fall precautions Hypokalemia likely secondary to chronic alcohol abuse. - Patient on potassium replacement at home but has not been compliant. - Status post 60 vignesh potassium IV and K-lyte 25 meq PO x 1 and scheduled BID. - Continue cardiac telemetry. - EKG reviewed, no arrhythmias noted. - BMP a.m. DVT prophylaxis: SCDs and Xarelto Discharge Planning Needs 3 MN dc 12/03 Problem Qualifiers (1) Left femoral shaft fracture: Qualified Code: S72.335A - Closed nondisplaced oblique fracture of shaft of left femur, initial encounter Marlon Sellers MD Dec 01, 2016 12:23 Sodium Level 137 Potassium Level 2.3 Chloride Level 91 Carbon Dioxide Level 40.0 Anion Gap 6 Blood Urea Nitrogen 6 Creatinine 0.51 Estimat Glomerular Filtration 120 Rate Random Glucose 98 Calcium Level 8.6 Magnesium Level 1.8 Total Bilirubin 1.5 Aspartate Amino Transf 21 (AST/SGOT) Alanine Aminotransferase 17 (ALT/SGPT) Alkaline Phosphatase 131 Total Protein 7.5 Albumin 3.3 Result Diagram: 11/30/16 1250 11/30/16 1250 Imaging Last Impressions Femur X-Ray 11/30/16 1236 Signed Impressions: Service Date/Time: November 13:07 - CONCLUSION: Subtle nondisplaced femur fracture. El Monae MD Pelvis X-Ray 11/30/16 0000 Signed Impressions: Service Date/Time: November 13:07 - CONCLUSION: Negative trauma study. El Monae MD Septic Shock Reassessment Septic Shock Reassessment Assessment and Plan Assessment and Plan Problem List: (1) Left femoral shaft fracture ICD Code: S72.302A Status: Acute (2) Hypopotassemia ICD Code: E87.6 Status: Acute Assessment and Plan Mrs. Patel is a 70-year-old female with a known medical history of alcohol abuse,occasional memory impairment, right hip replacement, and chronic pain due to degenerative disc disease s/p kyphoplasty who presented to the emergency department with complaints of left hip pain and inability to bear weight after sustaining a fall at home. Left femur fracture - Femur x-ray report reviewed, subtotal left nondisplaced femur fracture. Pelvis x-ray negative. Imaging studies personally reviewed by me - Orthopedic surgeon consulted, appreciate input. Possible surgery in a.m. NPO after midnight. - Control pain [place] per pain scale, morphine PRN breakthrough pain. Chronic alcohol abuse with associated macrocytosis, hypoalbuminemia and hyperbilirubinemia - CIWA protocol. Ativan PRN per protocol. - MCV 102.1, Total bilirubin 1.5, Albumin 3.3 - Start patient on scheduled folic acid, thiamine, and multivitamin. - Monitor for withdrawal symptoms. - Seizure precautions. Hypertension likely secondary to pain, improved. - Vasotec, hydralazine and clonidine PRN. - Monitor closely. Chronic low back pain s/p history of kyphoplasty: Control pain [place] per pain scale, morphine PRN breakthrough pain. Recurrent falls: Fall precautions Hypokalemia likely secondary to chronic alcohol abuse. - Patient on potassium replacement at home but has not been compliant. - Give total of 60 vignesh potassium IV and K-lyte 25 meq PO x 1 and scheduled BID. - Continue cardiac telemetry. - EKG reviewed, no arrhythmias noted. - BMP tonight and in a.m. DVT prophylaxis: SCDs A/P Problem List: (1) Left femoral shaft fracture ICD Code: S72.302A Status: Acute (2) Hypopotassemia ICD Code: E87.6 Status: Acute Problem Qualifiers (1) Left femoral shaft fracture: Qualified Code: S72.335A - Closed nondisplaced oblique fracture of shaft of left femur, initial encounter Marlon Sellers MD Dec 01, 2016 12:23
[2016-12-02] VITALS (7 sets, daily range): BP systolic 123–175; BP diastolic 64–79; PULSE 73–86; RESP 16–20; TEMP 96.3–98.1; O2SAT 94–96
[2016-12-02] MEDS: ACETAMINOPHEN/HYDROcodone 325 MG/10 MG TAB PO PRN ×6 (00:20→22:11)
[2016-12-02] MEDS: DOCUSATE SODIUM 100 MG CAP PO SCH ×2 (02:09→10:09)
--- NOTE | 2016-12-02 06:15 | PD.ORT.PN ---
Subjective Subjective Remarks pt has no complaints of hip pain, no leg pain no SOB, no chest pain Objective Vitals Vital Signs Date Time Temp Pulse Resp B/P Pulse Ox O2 Delivery O2 Flow Rate FiO2 12/02/16 00:00 97.1 83 18 150/71 96 12/01/16 20:00 97.7 76 16 174/90 96 12/01/16 18:15 98 21 12/01/16 16:00 97.3 78 16 120/79 98 12/01/16 14:56 16 12/01/16 13:20 95 21 12/01/16 10:00 97.0 73 18 129/70 97 12/01/16 08:00 97.4 71 18 132/79 96 12/01/16 07:40 Room Air I/O 12/01/16 12/01/16 12/01/16 12/02/16 12/02/16 12/02/16 07:00 15:00 23:00 07:00 15:00 23:00 Intake Total 100 ml 860 ml Balance 100 ml 860 ml Intake Oral 100 ml 860 ml # Voids 1 4 # Bowel Movements 0 Result Diagram: 11/30/16 1250 12/01/16 0510 Imaging Last 24 hours Impressions Femur X-Ray 11/30/16 1236 Signed Impressions: Service Date/Time: November 13:07 - CONCLUSION: Subtle nondisplaced femur fracture. El Monae MD Objective Remarks Seen by Dr. Eric Carver No pain with right hip or knee motion Pain with left hip motion, tender to palpation left proximal femur. Sensation intact bilateral lower extremity. Assessment & Plan Assessment and Plan nondisplaced left hip periprosthetic fracture. NWB left leg. no strengthening her quad sets left leg. follow-up with orthopedics in 1 week for repeat x-rays of left femur possible snf for discharge tomorrow orthopedically stable Tabitha Pope Dec 02, 2016 06:15
[2016-12-02] MEDS: POTASSIUM CHLORIDE 25 MEQ EFFERVESCENT TAB PO SCH ×2 (09:00→21:00)
[2016-12-02] MEDS: FOLIC ACID 1 MG TAB PO SCH (10:06)
[2016-12-02] MEDS: THIAMINE HCL 100 MG TAB PO SCH (10:06)
[2016-12-02] MEDS: MULTIVITAMINS/MINERALS THERAPEUTIC TAB PO SCH (10:07)
[2016-12-02] MEDS: RIVAROXABAN 10 MG TAB PO SCH (10:07)
[2016-12-02] MEDS: SODIUM CHLORIDE 0.9% FLUSH 10 ML FLUSH IV FLUSH SCH ×2 (10:08→21:00)
--- NOTE | 2016-12-02 10:26 | HHI.FPPN ---
Objective Vitals Vital Signs Date Time Temp Pulse Resp B/P Pulse Ox O2 Delivery O2 Flow Rate FiO2 12/02/16 09:14 98.0 85 16 175/75 96 12/02/16 04:00 96.3 86 20 123/70 96 12/02/16 00:00 97.1 83 18 150/71 96 12/01/16 20:00 97.7 76 16 174/90 96 12/01/16 18:15 98 21 12/01/16 16:00 97.3 78 16 120/79 98 12/01/16 14:56 16 12/01/16 13:20 95 21 I/O 12/01/16 12/01/16 12/01/16 12/02/16 12/02/16 12/02/16 07:00 15:00 23:00 07:00 15:00 23:00 Intake Total 100 ml 860 ml Balance 100 ml 860 ml Intake Oral 100 ml 860 ml # Voids 1 4 # Bowel Movements 0 Result Diagram: 11/30/16 1250 12/01/16 0510 lFo Cotton MD R3 Dec 02, 2016 10:26
--- NOTE | 2016-12-02 11:46 | HHI.PR ---
Subjective Remarks No acute events overnight. Vital signs remained stable. Patient is currently participating with non-weight bearing physical therapy. She endorses persistent left hip pain at the fracture site. She anticipates going to a rehabilitation facility tomorrow. She denies any fevers, chills, shortness of breath, or calf pain. Objective Vitals Vital Signs Date Time Temp Pulse Resp B/P Pulse Ox O2 Delivery O2 Flow Rate FiO2 12/02/16 09:14 98.0 85 16 175/75 96 12/02/16 04:00 96.3 86 20 123/70 96 12/02/16 00:00 97.1 83 18 150/71 96 12/01/16 20:00 97.7 76 16 174/90 96 12/01/16 18:15 98 21 12/01/16 16:00 97.3 78 16 120/79 98 12/01/16 14:56 16 12/01/16 13:20 95 21 I/O 12/01/16 12/01/16 12/01/16 12/02/16 12/02/16 12/02/16 07:00 15:00 23:00 07:00 15:00 23:00 Intake Total 100 ml 860 ml Balance 100 ml 860 ml Intake Oral 100 ml 860 ml # Voids 1 4 # Bowel Movements 0 Result Diagram: 11/30/16 1250 12/01/16 0510 Objective Remarks GENERAL: Well-nourished, well-developed female patient in no distress SKIN: Warm and dry. No rash. HEENT: Normocephalic. Atraumatic. Pupils equal and round. No scleral icterus. No injection or drainage. CARDIOVASCULAR: Regular rate and rhythm. S1, S2 noted. No murmur appreciated. RESPIRATORY: No accessory muscle use. CTA. Breath sounds equal bilaterally. GASTROINTESTINAL: Abdomen soft, non-tender, nondistended. Normoactive bowel sounds x4. MUSCULOSKELETAL: No obvious deformities. Extremities without clubbing, cyanosis , or edema. 2+ pedal pulses NEUROLOGICAL: Awake and alert. No obvious cranial nerve deficits. Motor grossly within normal limits. 5/5 muscle strength in bilateral upper and lower extremities. Normal speech. Procedures none A/P Problem List: (1) Left femoral shaft fracture ICD Code: S72.302A Status: Acute (2) Hypopotassemia ICD Code: E87.6 Status: Acute Assessment and Plan Mrs. Patel is a 70-year-old female with a known medical history of alcohol abuse,occasional memory impairment, right hip replacement, and chronic pain due to degenerative disc disease s/p kyphoplasty who presented to the emergency department with complaints of left hip pain and inability to bear weight after sustaining a fall at home. Left femur fracture - Femur x-ray report reviewed, subtotal left nondisplaced femur fracture. Pelvis x-ray negative. - Orthopedic surgery consulted, appreciate input. Patient elected non- surgical management. - Started on Xarelto for DVT prophylaxis - Control pain [place] per pain scale, morphine PRN breakthrough pain. Chronic alcohol abuse with associated macrocytosis, hypoalbuminemia and hyperbilirubinemia - CIWA protocol-- recent scores have been 0. Ativan PRN per protocol. - MCV 102.1, Total bilirubin 1.5, Albumin 3.3 - Continue scheduled folic acid, thiamine, and multivitamin. - Monitor for withdrawal symptoms. - Seizure precautions. Hypertension, intermittently labile-- likely secondary to pain - If remains elevated, will consider adding daily antihypertensive - Vasotec, hydralazine and clonidine PRN. Chronic low back pain s/p history of kyphoplasty: Control pain [place] per pain scale, morphine PRN breakthrough pain. Recurrent falls: Fall precautions Hypokalemia, likely secondary to chronic alcohol abuse. Improving. - Patient on potassium replacement at home but has not been compliant. - Status post 60 vignesh potassium IV - Continue K-lyte 25 meq PO scheduled BID. - Continue cardiac telemetry. - EKG reviewed, no arrhythmias noted. - BMP a.m. DVT prophylaxis: SCDs and Xarelto Discharge Planning Anticipate discharge to SNF tomorrow 12/03/2016. Problem Qualifiers (1) Left femoral shaft fracture: Qualified Code: S72.335A - Closed nondisplaced oblique fracture of shaft of left femur, initial encounter Flo Cotton MD R3 Dec 02, 2016 11:46
[2016-12-03 03:48] VITALS: BP 140/70; PULSE 91; RESP 17; TEMP 98; O2SAT 93
[2016-12-03] MEDS: MORPHINE SULFATE 4 MG/ML INJ IV PRN (06:04)
[2016-12-03 06:15] LABS: BICARBONATE 32.8 MEQ/L (21.0-32.0); MAGNESIUM 1.7 MG/DL (1.5-2.5); POTASSIUM 3.6 MEQ/L (3.5-5.1)
[2016-12-03 07:50] VITALS: BP 153/69; PULSE 84; RESP 17; TEMP 96.9; O2SAT 95
[2016-12-03 08:19] LABS: AUTOMATED NEUTROPHIL # 4.3 TH/MM3 (1.8-7.7); BASOPHIL % 0.5 % (0.0-2.0); EOSINOPHIL # 0.2 TH/MM3 (0-0.4); EOSINOPHIL % 2.4 % (0.0-4.0); HEMATOCRIT 46.5 % (35.0-46.0); HEMO FLAGS DIFF FINAL; LYMPH % 19.6 % (9.0-44.0); LYMPHOCYTE # 1.3 TH/MM3 (1.0-4.8); MEAN CELL VOLUME 102.9 FL (80.0-100.0); MONO % 10.1 % (0.0-8.0); NEUT % 67.4 % (16.0-70.0); PLATELET COUNT 179 TH/MM3 (150-450); RED BLOOD COUNT 4.51 MIL/MM3 (4.00-5.30); RED CELL DISTRIBUTION WIDTH 18.9 % (11.6-17.2); WHITE BLOOD COUNT 6.4 TH/MM3 (4.0-11.0)
[2016-12-03] MEDS: FOLIC ACID 1 MG TAB PO SCH (08:52)
[2016-12-03] MEDS: ACETAMINOPHEN/HYDROcodone 325 MG/10 MG TAB PO PRN ×2 (08:52→13:04)
[2016-12-03] MEDS: MULTIVITAMINS/MINERALS THERAPEUTIC TAB PO SCH (08:52)
[2016-12-03] MEDS: RIVAROXABAN 10 MG TAB PO SCH (08:52)
[2016-12-03] MEDS: POTASSIUM CHLORIDE 25 MEQ EFFERVESCENT TAB PO SCH (08:53)
[2016-12-03] MEDS: SODIUM CHLORIDE 0.9% FLUSH 10 ML FLUSH IV FLUSH SCH (08:53)
[2016-12-03] MEDS: THIAMINE HCL 100 MG TAB PO SCH (08:53)
[2016-12-03] MEDS ORDERED: DOCUSATE SODIUM 100 MG CAP PO SCH (09:00)
--- NOTE | 2016-12-03 09:15 | HHI.PR ---
Subjective Remarks No acute events overnight. Vital signs remained stable. Patient refused labs yesterday but did allow for them to be obtained this morning. She denies any fevers, chills, chest pain, shortness of breath, or calf pain or lower extremity swelling. She states her pain is adequately controlled and she is ready for discharge to SNF. Objective Vitals Vital Signs Date Time Temp Pulse Resp B/P Pulse Ox O2 Delivery O2 Flow Rate FiO2 12/03/16 03:48 98.0 91 17 140/70 93 12/02/16 23:53 97.8 73 16 132/73 94 12/02/16 19:42 97.9 80 17 150/64 95 12/02/16 19:07 Room Air 12/02/16 16:00 98.0 73 16 146/79 95 12/02/16 12:00 98.1 78 16 132/67 95 I/O 12/02/16 12/02/16 12/02/16 12/03/16 12/03/16 12/03/16 07:00 15:00 23:00 07:00 15:00 23:00 Intake Total 480 ml 240 ml 120 ml Balance 480 ml 240 ml 120 ml Intake Oral 480 ml 240 ml 120 ml # Voids 3 1 2 # Bowel Movements 0 Result Diagram: 12/03/16 0523 12/03/16522 Objective Remarks GENERAL: Well-nourished, well-developed female patient in no distress SKIN: Warm and dry. No rash. HEENT: Normocephalic. Atraumatic. Pupils equal and round. No scleral icterus. No injection or drainage. CARDIOVASCULAR: Regular rate and rhythm. S1, S2 noted. No murmur appreciated. RESPIRATORY: No accessory muscle use. CTA. Breath sounds equal bilaterally. GASTROINTESTINAL: Abdomen soft, non-tender, nondistended. Normoactive bowel sounds x4. MUSCULOSKELETAL: No obvious deformities. Extremities without clubbing, cyanosis , or edema. 2+ pedal pulses bilat NEUROLOGICAL: Awake and alert. No obvious cranial nerve deficits. Motor grossly within normal limits. 5/5 muscle strength in bilateral upper and lower extremities. Normal speech. Procedures none A/P Problem List: (1) Left femoral shaft fracture ICD Code: S72.302A Status: Acute (2) Hypopotassemia ICD Code: E87.6 Status: Acute Assessment and Plan Mrs. Patel is a 70-year-old female with a known medical history of alcohol abuse,occasional memory impairment, right hip replacement, and chronic pain due to degenerative disc disease s/p kyphoplasty who presented to the emergency department with complaints of left hip pain and inability to bear weight after sustaining a fall at home. Left femur fracture - Femur x-ray report reviewed, subtotal left nondisplaced femur fracture. Pelvis x-ray negative. - Orthopedic surgery consulted, appreciate input. Patient elected non- surgical management. - Started on Xarelto for DVT prophylaxis, will continue for up to total of 35 days due to immobilization in setting of "hip fracture" - Control pain [place] prn pain Chronic alcohol abuse with associated macrocytosis, hypoalbuminemia and hyperbilirubinemia - CIWA protocol-- recent scores have been 0. Ativan PRN per protocol. - MCV 102.1, Total bilirubin 1.5, Albumin 3.3 - Continue scheduled folic acid, thiamine, and multivitamin. - Monitor for withdrawal symptoms. - Pt has remained stable without evidence of w/d Hypertension, intermittently labile-- likely secondary to pain - If remains elevated, will consider adding daily antihypertensive - Vasotec, hydralazine and clonidine PRN. Chronic low back pain s/p history of kyphoplasty: Control pain [place] per pain scale, morphine PRN breakthrough pain. Recurrent falls: Fall precautions Hypokalemia, likely secondary to chronic alcohol abuse. Resolved w/ replacement - Patient on potassium replacement at home but has not been compliant. DVT prophylaxis: SCDs and Xarelto Discharge Planning Anticipate discharge to SNF tomorrow 12/03/2016. Problem Qualifiers (1) Left femoral shaft fracture: Qualified Code: S72.335A - Closed nondisplaced oblique fracture of shaft of left femur, initial encounter Flo Cotton MD R3 Dec 03, 2016 09:15
[2016-12-03] MEDS ORDERED: DOCU1CAP39 PO (09:31)
[2016-12-03] MEDS ORDERED: XARE10TA PO (09:31)
--- NOTE | 2016-12-03 09:31 | HHI.DCPOC ---
Discharge Care Plan Diagnosis: (1) Left femoral shaft fracture Goals to Promote Your Health * To prevent worsening of your condition and complications * To maintain your health at the optimal level Directions to Meet Your Goals Take your medications as prescribed Follow your dietary instruction Follow activity as directed Keep your appointments as scheduled Take your immunizations and boosters as scheduled If your symptoms worsen call your PCP, if no PCP go to Urgent Care Center or Emergency Room Smoking is Dangerous to Your Health. Avoid second hand smoke Call the 24-hour hour crisis hotline for domestic abuse at Flo Cotton MD R3 Dec 03, 2016 09:31
--- NOTE | 2016-12-03 09:43 | HHI.DS ---
Discharge Summary Admission Date Nov 30, 2016 at 14:55 Discharge Date: Dec 03, 2016 Admitting Diagnosis Left Femur Fracture/Low Potassium (1) Left femoral shaft fracture Diagnosis: Principal (2) Hypopotassemia Brief History Mrs. Patel is a 70-year-old female with a known medical history of alcohol abuse, occasional memory impairment, right hip replacement, and chronic pain due to degenerative disc disease s/p kyphoplasty who presented to the emergency department with complaints of left hip pain and inability to bear weight after sustaining a fall at home. Per at bedside, the patient has been unsteady for quite some time, requiring the use of home physical therapy and home health to increase strength. He states that the patient has fallen three times in the past week with most recent fall being last night, 11/30. Patient's was able to get patient to the couch after the fall to sleep through the night but when awoken this morning patient was unable to bear weight and was in severe pain, therefore [facility] was called. Denies any associated dizziness , nausea, vomiting, or loss of consciousness. CBC/BMP: 12/03/16 0523 12/03/16 0523 Significant Findings Laboratory Tests Test 11/30/16 12/01/16 12/01/16 12/03/16 12:50 00:02 05:10 05:23 Mean Corpuscular Volume 102.1 FL 102.9 FL (80.0-100.0) (80.0-100.0) Mean Corpuscular Hemoglobin 34.7 PG 35.0 PG (27.0-34.0) (27.0-34.0) Red Cell Distribution Width 18.9 % 18.9 % (11.6-17.2) (11.6-17.2) Neutrophils (%) (Auto) 72.1 % (16.0-70.0) Monocytes (%) (Auto) 10.1 % 10.1 % (0.0-8.0) (0.0-8.0) Prothrombin Time 11.7 SEC (9.8-11.6) Potassium Level 2.3 MEQ/L 2.8 MEQ/L 3.3 MEQ/L (3.5-5.1) (3.5-5.1) (3.5-5.1) Chloride Level 91 MEQ/L 94 MEQ/L 96 MEQ/L 96 MEQ/L (98-107) (98-107) (98-107) (98-107) Carbon Dioxide Level 40.0 MEQ/L 34.1 MEQ/L 33.2 MEQ/L 32.8 MEQ/L (21.0-32.0) (21.0-32.0) (21.0-32.0) (21.0-32.0) Blood Urea Nitrogen 6 MG/DL (7-18) 6 MG/DL (7-18) 6 MG/DL (7-18) 6 MG/DL (7-18) Total Bilirubin 1.5 MG/DL (0.2-1.0) Alkaline Phosphatase 131 U/L (45-117) Albumin 3.3 GM/DL (3.4-5.0) Creatinine 0.47 MG/DL 0.39 MG/DL 0.36 MG/DL (0.50-1.00) (0.50-1.00) (0.50-1.00) Calcium Level 8.1 MG/DL (8.5-10.1) Magnesium Level 1.4 MG/DL (1.5-2.5) Hemoglobin 15.8 GM/DL (11.6-15.3) Hematocrit 46.5 % (35.0-46.0) Imaging Last Impressions Femur X-Ray 11/30/16 1236 Signed Impressions: Service Date/Time: November 13:07 - CONCLUSION: Subtle nondisplaced femur fracture. El Monae MD Pelvis X-Ray 11/30/16 0000 Signed Impressions: Service Date/Time: November 13:07 - CONCLUSION: Negative trauma study. El Monae MD PE at Discharge GENERAL: Well-nourished, well-developed female patient in no distress SKIN: Warm and dry. No rash. HEENT: Normocephalic. Atraumatic. Pupils equal and round. No scleral icterus. No injection or drainage. CARDIOVASCULAR: Regular rate and rhythm. S1, S2 noted. No murmur appreciated. RESPIRATORY: No accessory muscle use. CTA. Breath sounds equal bilaterally. GASTROINTESTINAL: Abdomen soft, non-tender, nondistended. Normoactive bowel sounds x4. MUSCULOSKELETAL: No obvious deformities. Extremities without clubbing, cyanosis , or edema. 2+ pedal pulses bilat NEUROLOGICAL: Awake and alert. No obvious cranial nerve deficits. Motor grossly within normal limits. 5/5 muscle strength in bilateral upper and lower extremities. Normal speech. Hospital Course X-rays were obtained and revealed a subtle nondisplaced left femur fracture at the site of the prior hip replacement. Orthopedic surgery was consult it. Patient had discussion with orthopedic surgeon and reviewed the risks and benefits of proceeding with surgery. Patient elected to proceed with nonsurgical management. Pain control has been provided. She was started on Xarelto by orthopedic surgery for "Hip fracture" DVT prophylaxis. Patient has been without acute concerns and has placement to SNF for rehabilitation and physical therapy. Pt Condition on Discharge: Stable Discharge Disposition: Discharge to SNF Discharge Instructions DIET: Follow Instructions for: Heart Healthy Diet Activities you can perform: Non Weight Bearing Additional Activity Instructio: Per PT Follow up Referrals: Orthopedics - 1 Week @ [facility] with Brad Lira MD New Medications: Docusate Sodium (Dok) 100 Mg Cap 100 MG PO Q12HR #60 CAP Hydrocodone-Acetaminophen (Hydrocodone-Acetaminophen) 10-325 mg Tab 1 TAB PO Q6HR PRN pain #12 TAB Rivaroxaban (Xarelto) 10 Mg Tab 10 MG PO DAILY #30 TAB Flo Cotton MD R3 Dec 03, 2016 09:43
[2016-12-03 11:40] VITALS: BP 138/64; PULSE 93; RESP 17; TEMP 97.5; O2SAT 95
== END 2016-12-03 15:43 | DRG 534 ==
LOC: NEPC 12:24 → NEDA 14:55 → N06A 18:18
PROVIDERS: ADMIT Internal Medicine; ATTEND Internal Medicine
DX: S72.335A Nondisplaced oblique fracture of shaft of left femur, initial encounter for closed fracture (principal); M97.02XA Periprosthetic fracture around internal prosthetic left hip joint, initial encounter; E88.09 Other disorders of plasma-protein metabolism, not elsewhere classified; E87.6 Hypokalemia; G89.29 Other chronic pain; M54.5 Low back pain; D75.89 Other specified diseases of blood and blood-forming organs; F10.10 Alcohol abuse, uncomplicated; R03.0 Elevated blood-pressure reading, without diagnosis of hypertension; E80.6 Other disorders of bilirubin metabolism; R29.6 Repeated falls; W19.XXXA Unspecified fall, initial encounter; Y92.009 Unspecified place in unspecified non-institutional (private) residence as the place of occurrence of the external cause; Z91.14 Patient's other noncompliance with medication regimen; Z91.81 History of falling; Z88.6 Allergy status to analgesic agent; Z88.5 Allergy status to narcotic agent
CPT/HCPCS: 72170; 73552; 80048; 80053; 82550; 83735; 85025; 85610; 85730; 93005; 96372; 96374; J2270; J2405; J3475; J3480

== ENCOUNTER 2016-12-26 07:03 | Inpatient (IN) | payer MEDICARE ==
[~2016-12-26] VITALS: Ht 177.8 cm; Wt 53.8 kg
[~2016-12-26 07:03] MED LIST changes: +DOCU1CAP39 PO; +HYDR-3583 PO; +XARE10TA PO
[2016-12-26] MEDS ORDERED: VANCOMYCIN 500 MG VIAL ONE (08:30)
[2016-12-26] MEDS ORDERED: ceFAZolin INJ 1,000 MG VIAL ONE (08:30)
[2016-12-26] MEDS ORDERED: GENTAMICIN SULFATE 80 MG/2 ML VIAL ONE (08:31)
[2016-12-26] MEDS ORDERED: FOLI1TAB4 PO (08:33)
[2016-12-26] MEDS ORDERED: MULTTAB67 PO (08:34)
[2016-12-26] MEDS ORDERED: VITATAB43 PO (08:35)
[2016-12-26] MEDS ORDERED: VITA500C9 CHEW (08:39)
[2016-12-26] MEDS ORDERED: IPRASOL INH (08:40)
[2016-12-26 08:43] VITALS: BP 110/68; PULSE 84; RESP 20; TEMP 98.1; O2SAT 100
[2016-12-26] MEDS ORDERED: VANCOMYCIN HCL 1000 MG VIAL ONE (08:57)
[2016-12-26] MEDS ORDERED: SODIUM CHLOR 0.9% 250 ML INJ 250 ML ONE (08:57)
[2016-12-26] MEDS ORDERED: ACETAMINOPHEN 1000 MG/100 ML VIAL IV ONE (10:36)
[2016-12-26] MEDS ORDERED: DEXAMETHASONE SOD PHOS 4 MG/ML VIAL ONE (10:48)
[2016-12-26] MEDS ORDERED: KETAMINE HCL 500 MG/5 ML VIAL ONE (10:56)
[2016-12-26 11:02] LABS: BASOPHIL % 0.7 % (0.0-2.0); EOSINOPHIL # 0.1 TH/MM3 (0-0.4); EOSINOPHIL % 2.2 % (0.0-4.0); HEMATOCRIT 40.4 % (35.0-46.0); HEMO FLAGS DIFF FINAL; LYMPH % 29.3 % (9.0-44.0); MEAN CELL VOLUME 98.9 FL (80.0-100.0); MEAN CORPUSCULAR HEMOGLOBIN 33.7 PG (27.0-34.0); MONO % 8.1 % (0.0-8.0); NEUT % 59.7 % (16.0-70.0); PLATELET COUNT 249 TH/MM3 (150-450); RED BLOOD COUNT 4.08 MIL/MM3 (4.00-5.30); RED CELL DISTRIBUTION WIDTH 17.6 % (11.6-17.2); WHITE BLOOD COUNT 6.8 TH/MM3 (4.0-11.0)
[2016-12-26 11:12] LABS: PROTHROMBIN TIME - PATIENT 11.4 SEC (9.8-11.6)
[2016-12-26 11:40] LABS: BICARBONATE 27.3 MEQ/L (21.0-32.0); POTASSIUM 4.2 MEQ/L (3.5-5.1)
[2016-12-26] MEDS ORDERED: ePHEDrine/NS 25 MG/5 ML SYR IV ONE (12:00)
[2016-12-26] MEDS ORDERED: PHENYLEPH/NS 1000 MCG/10 ML SYR IV ONE (12:00)
[2016-12-26] MEDS ORDERED: NEOSTIGMINE 3 MG/3 ML SYR IV ONE (12:00)
[2016-12-26] MEDS ORDERED: ONDANSETRON HCL 4 MG/2 ML VIAL IV PUSH ONE (12:00)
[2016-12-26] MEDS ORDERED: LACTATED RINGER'S 1000 ML INJ 1,000 ML IV ONE (12:00)
[2016-12-26] MEDS ORDERED: PROPOFOL 200 MG/20 ML AMP IV ONE (12:00)
[2016-12-26] MEDS ORDERED: NORMOSOL R INJ 1,000 ML IV ONE (12:00)
[2016-12-26] MEDS: LACTATED RINGER'S 1000 ML INJ 1,000 ML IV SCH (13:16)
--- NOTE | 2016-12-26 13:24 | PD.OP ---
cc: Brad Alejandro MD Operative Report Date of Surgery: December 26, 2016 Preoperative Diagnosis: Left proximal femur periprosthetic fracture Postoperative Diagnosis: Procedure: Open reduction internal fixation left proximal femur periprosthetic fracture Anesthesia: Gen. Surgeon: Brad Alejandro Tool Marker(s): NEW Kennedy PA-C The surgical procedure was assisted by my physician assistant professor of business. My P.A. presence was necessary throughout this case for the manipulation and positioning of the surgical extremity. My P.A. was assisting me throughout the duration of this procedure. The skill set of a physician assistant professor of business was medically necessary to complete this procedure. During the surgical case the ophthalmology surgical technician was working at the back table and the physician assistant professor of business was directly assisting me. Operation and Findings: Patient was seen and evaluated preoperatively. She initially had an nondisplaced periprosthetic femur fracture. Follow-up x-rays in clinic revealed subsequent displacement of fracture. I had a lengthy discussion with patient and her regarding surgical and nonsurgical options. Informed consent was obtained, operative site was marked. Patient was brought to the OR , placed on OR table, and given IV sedation with GETA. IV antibiotics were administered and timeout procedure was performed. Patient was placed in lateral decubitus position and the left leg was prepped with alcohol, followed with Hibiclens, draped in usual sterile fashion. A timeout procedure was performed. The procedure began with a 10 incision over the lateral aspect of the femur. Subcutaneous tissue was dissected with Bovie. Iliotibial band was split in line with fibers. The vastus lateralis fascia was incised. The muscle was reflected anteriorly. At this point the fracture was visualized. Traction was applied. Fracture was manipulated. The fracture reduced into excellent alignment. Fracture tenaculums were used to hold provisional fixation. Fluoroscopy confirmed anatomic reduction of the fracture. At this point attention was turned to plate placement. A lateral femoral plate was selected. The plate was placed underneath the vastus lateralis. Steinmann pins were used to hold the plate to bone. Multiplanar fluoroscopy confirmed appropriate placement of plate. Multiple 4.5 cortical screws were now placed to compress plate to bone. At this 3 additional cables were passed around the femur. Care was taken to avoid injury to neurovascular structures. Cables were tensioned appropriately. Multiple locking screws were now placed in the proximal and distal segments of the distal femur. All screws were predrilled and premeasured for appropriate length. Final fluoroscopy revealed excellent alignment of fracture with well-placed hardware. Wound was thoroughly irrigated. Fascia was closed with #1 Vicryl. Subcutaneous tissue was closed with 3-0 Vicryl. Skin was closed with tianna. Sterile dressings were applied. The patient was placed into a knee immobilizer and transferred to recovery in stable condition. Needle and sponge counts were correct. Brad Alejandro MD December 26, 2016 13:24
[2016-12-26] MEDS ORDERED: MORPHINE SULFATE 4 MG/ML INJ IV PUSH PRN (13:30)
[2016-12-26] MEDS ORDERED: Post-op Orders (for Pharmacy) MISC XX ONE (13:30)
[2016-12-26] MEDS ORDERED: diphenhydrAMINE HCL 25 MG CAP PO PRN (13:30)
[2016-12-26] MEDS ORDERED: ACETAMINOPHEN/HYDROcodone 325 MG/7.5 MG TAB PO PRN ×2 (13:30)
[2016-12-26] MEDS ORDERED: ONDANSETRON HCL 4 MG/2 ML VIAL IVP PRN (13:30)
[2016-12-26] MEDS ORDERED: NALOXONE HCL 0.4 MG/ML AMP IV PRN (13:30)
[2016-12-26] MEDS ORDERED: SODIUM CHLORIDE 0.9% FLUSH 5 ML FLUSH IVF PRN (13:30)
--- NOTE | 2016-12-26 13:33 | RADRPT ---
EXAM DATE/TIME: 12/26/2016 13:04 [facility] COMPARISON: FEMUR LEFT (AP & LAT/2VWS), November 30, 2016, 13:07. INDICATIONS : ORIF left femur. MEDICAL HISTORY : None. SURGICAL HISTORY : Left hip replacement. ENCOUNTER: Subsequent ACUITY: 3 weeks PAIN SCORE: Non-responsive. LOCATION: Left femur. CONCLUSION: Fluoroscopic image during placement of plate and screws along the left femur fixating fracture. Exist ing left hip prosthesis and femoral component are seen.. Rob Coffman MD on December 26, 2016 at 13:28 Board Certified Radiologist. This report was verified electronically.
[2016-12-26] MEDS ORDERED: fentaNYL CITRATE 250 MCG/5 ML AMP ONE (14:00)
[2016-12-26] MEDS ORDERED: *morphine SULFATE 8 MG/ML PERIprocedure ONLY ONE ×3 (14:02→14:38)
[2016-12-26] MEDS ORDERED: *MEPERIDINE 25 MG INJ VIAL PERIprocedural Use ONLY ONE (14:25)
--- NOTE | 2016-12-26 15:12 | EKG ---
Date Performed: 12/26/2016 Time Performed: 08:42:45 PTAGE: 71 years EKG: Sinus rhythm NORMAL ECG Compared to prior tracing no significant change PREVIOUS TRACING : 11/30/2016 12.48 DOCTOR: Sindhu Fontenot Interpretating Date/Time 12/26/2016 15:11:24
[2016-12-26] MEDS ORDERED: *HYDROmorphone PF 1 MG VIAL PERIprocedural Use ONLY ONE (15:16)
[2016-12-26 15:40] VITALS: BP 113/54; PULSE 81; RESP 18; TEMP 96.3; O2SAT 93
[2016-12-26 16:00] VITALS: BP 108/64; PULSE 89; RESP 18; TEMP 96.6; O2SAT 98
[2016-12-26 19:13] VITALS: BP 98/53; PULSE 90; RESP 16; TEMP 96.7; O2SAT 97
[2016-12-26 19:38] VITALS: BP 106/58
[2016-12-26] MEDS: ACETAMINOPHEN/HYDROcodone 325 MG/10 MG TAB PO PRN (20:51)
[2016-12-26] MEDS: DOCUSATE SODIUM 50 MG/SENNA 8.6 MG TAB PO SCH (20:52)
[2016-12-26] MEDS: CALCIUM/VITAMIN D 250 MG/125 U TAB PO SCH (20:52)
[2016-12-26] MEDS: POTASSIUM CHLORIDE 10 MEQ CAP PO SCH (20:53)
[2016-12-26] MEDS: ASCORBIC ACID 500 MG TAB PO SCH (20:55)
[2016-12-26] MEDS: SODIUM CHLORIDE 0.9% FLUSH 5 ML FLUSH IVF SCH (20:57)
[2016-12-26 21:14] VITALS: O2SAT 96
[2016-12-26] MEDS: RESP: ALBUTEROL 2.5 MG/IPRATROPIUM 0.5 MG NEB (SCH) INH (21:14)
[2016-12-27] VITALS (8 sets, daily range): BP systolic 94–109; BP diastolic 51–57; PULSE 88–100; RESP 16–18; TEMP 97.4–98.8; O2SAT 95–98
[2016-12-27] MEDS: LACTATED RINGER'S 1000 ML INJ 1,000 ML IV SCH ×3 (01:46→14:16)
[2016-12-27] MEDS: RESP: ALBUTEROL 2.5 MG/IPRATROPIUM 0.5 MG NEB (SCH) INH ×4 (03:46→21:38)
[2016-12-27] MEDS: ACETAMINOPHEN/HYDROcodone 325 MG/10 MG TAB PO PRN ×4 (05:09→18:43)
[2016-12-27 06:40] LABS: HEMATOCRIT 35.1 % (35.0-46.0); REVIEW FLAG FINAL
[2016-12-27] MEDS ORDERED: HYDR-3366 PO (07:09)
[2016-12-27] MEDS ORDERED: XARE10TA PO (07:09)
[2016-12-27] MEDS: POTASSIUM CHLORIDE 10 MEQ CAP PO SCH ×2 (09:00→20:03)
[2016-12-27] MEDS: SODIUM CHLORIDE 0.9% FLUSH 5 ML FLUSH IVF SCH ×2 (09:00→20:03)
[2016-12-27] MEDS ORDERED: NON-FORMULARY DRUG (Cobalamine Combinations (Vitamin B12-Folic Acid) 1 TAB) PO SCH (09:00)
[2016-12-27] MEDS: DOCUSATE SODIUM 50 MG/SENNA 8.6 MG TAB PO SCH ×2 (09:35→20:03)
[2016-12-27] MEDS: ASCORBIC ACID 500 MG TAB PO SCH ×2 (09:35→20:03)
[2016-12-27] MEDS: FOLIC ACID 1 MG TAB PO SCH (09:35)
[2016-12-27] MEDS: CALCIUM/VITAMIN D 250 MG/125 U TAB PO SCH ×3 (09:36→18:43)
--- NOTE | 2016-12-27 10:54 | PD.ORT.PN ---
Subjective Subjective Remarks Pain controlled. Some mild confusion Objective Vitals Vital Signs Date Time Temp Pulse Resp B/P Pulse Ox O2 Delivery O2 Flow Rate FiO2 12/27/16 09:03 97 Nasal Cannula 1.00 12/27/16 08:00 97.5 88 18 103/51 97 12/27/16 04:00 98.1 95 16 107/53 98 12/27/16 00:00 97.4 90 17 97/56 97 12/26/16 21:14 96 Nasal Cannula 1.00 12/26/16 19:38 106/58 12/26/16 19:13 96.7 90 16 98/53 97 12/26/16 16:00 96.6 89 18 108/64 98 12/26/16 15:30 85 17 103/63 99 Nasal Cannula 2 12/26/16 15:15 89 17 105/63 99 Nasal Cannula 2 12/26/16 15:00 87 14 98/63 96 Nasal Cannula 2 12/26/16 14:45 88 13 100/62 96 Nasal Cannula 2 12/26/16 14:30 91 13 117/71 97 Nasal Cannula 2 12/26/16 14:15 92 13 121/72 98 Nasal Cannula 2 12/26/16 13:55 97.3 94 15 135/79 99 Nasal Cannula 2 I/O 12/26/16 12/26/16 12/26/16 12/27/16 12/27/16 12/27/16 07:00 15:00 23:00 07:00 15:00 23:00 Intake Total 2100 ml 782 ml 1139 ml Output Total 690 ml 570 ml 15 ml Balance 1410 ml 212 ml 1124 ml Intake Oral 240 ml 480 ml IV Total 542 ml 659 ml Other 2100 ml Output Urine Total 400 ml 450 ml Drainage Total 40 ml 120 ml 15 ml Estimated Blood Loss 250 ml Result Diagram: 12/27/16 0545 12/26/16 1046 Imaging Last 72 hours Impressions Femur X-Ray 12/26/16 0000 Signed Impressions: Service Date/Time: Monday, December 26, 2016 13:04 - CONCLUSION: Fluoroscopic image during placement of plate and screws along the left femur fixating fracture. Existing left hip prosthesis and femoral component are seen.. Rob Coffman MD Objective Remarks Left lower extremity: Clean dry dressings intact. Mild swelling. Distally intact sensation with good capillary refills. Positive dorsiflexion and plantar flexion of foot Assessment & Plan Assessment and Plan Left periprosthetic femur fracture status post open reduction internal fixation POD 1 Nonweightbearing left lower extremity Physical therapy for transfers Daily dressing changes beginning POD 2 with planned removal of drain We'll plan on discharge back to rehabilitation tomorrow or Sunday El Bajwa Jr. December 27, 2016 10:54
[2016-12-27] MEDS ORDERED: RIVAROXABAN 10 MG TAB PO SCH (13:00)
[2016-12-27] MEDS: VANCOMYCIN INJ 1,000 MG in SODIUM CHLOR 0.9% 250 ML INJ 250 ML IV SCH (20:02)
[2016-12-28 00:25] VITALS: BP 114/68; PULSE 100; RESP 18; TEMP 97.2; O2SAT 97
[2016-12-28] MEDS: LACTATED RINGER'S 1000 ML INJ 1,000 ML IV SCH (00:32)
[2016-12-28] MEDS: RESP: ALBUTEROL 2.5 MG/IPRATROPIUM 0.5 MG NEB (SCH) INH ×2 (04:00→10:00)
[2016-12-28] MEDS: ACETAMINOPHEN/HYDROcodone 325 MG/10 MG TAB PO PRN (04:14)
--- NOTE | 2016-12-28 07:09 | PD.ORT.PN ---
Subjective Subjective Remarks Pain controlled. Some mild confusion Objective Vitals Vital Signs Date Time Temp Pulse Resp B/P Pulse Ox O2 Delivery O2 Flow Rate FiO2 12/28/16 00:25 97.2 100 18 114/68 97 12/27/16 20:25 97.8 100 17 104/51 95 12/27/16 16:00 98.8 95 18 109/57 98 12/27/16 15:40 98 21 12/27/16 12:00 98.3 90 18 94/53 98 12/27/16 09:03 97 Nasal Cannula 1.00 12/27/16 08:00 97.5 88 18 103/51 97 I/O 12/27/16 12/27/16 12/27/16 12/28/16 12/28/16 12/28/16 07:00 15:00 23:00 07:00 15:00 23:00 Intake Total 1139 ml 1393 ml 626 ml 120 ml Output Total 15 ml 2000 ml Balance 1124 ml -607 ml 626 ml 120 ml Intake Oral 480 ml 600 ml 240 ml 120 ml IV Total 659 ml 793 ml 386 ml Output Urine Total 2000 ml Drainage Total 15 ml 0 ml # Voids 1 2 # Bowel Movements 0 0 0 Result Diagram: 12/27/16 0545 12/26/16 1046 Imaging Last 72 hours Impressions Femur X-Ray 12/26/16 0000 Signed Impressions: Service Date/Time: Monday, December 26, 2016 13:04 - CONCLUSION: Fluoroscopic image during placement of plate and screws along the left femur fixating fracture. Existing left hip prosthesis and femoral component are seen.. Rob Coffman MD Objective Remarks Left lower extremity: Clean dry dressings intact. Mild swelling. Distally intact sensation with good capillary refills. Positive dorsiflexion and plantar flexion of foot Assessment & Plan Assessment and Plan Left periprosthetic femur fracture status post open reduction internal fixation POD 2 Nonweightbearing left lower extremity Physical therapy for transfers - patient is not allowed to refuse Daily dressing changes We'll plan on discharge back to rehabilitation today or tomorrow when bed available El Bajwa Jr. December 28, 2016 07:09
[2016-12-28 08:00] VITALS: BP 97/72; PULSE 92; RESP 18; TEMP 97.9; O2SAT 97
[2016-12-28] MEDS: DOCUSATE SODIUM 50 MG/SENNA 8.6 MG TAB PO SCH (08:55)
[2016-12-28] MEDS: CALCIUM/VITAMIN D 250 MG/125 U TAB PO SCH (08:55)
[2016-12-28] MEDS: ASCORBIC ACID 500 MG TAB PO SCH (08:55)
[2016-12-28] MEDS: POTASSIUM CHLORIDE 10 MEQ CAP PO SCH (08:56)
[2016-12-28] MEDS: FOLIC ACID 1 MG TAB PO SCH (08:56)
[2016-12-28] MEDS: SODIUM CHLORIDE 0.9% FLUSH 5 ML FLUSH IVF SCH (08:56)
[2016-12-28] MEDS ORDERED: BACITRACIN TOP OINT 15 GM TUBE TOPICAL SCH (09:00)
[2016-12-28] MEDS: VANCOMYCIN INJ 1,000 MG in SODIUM CHLOR 0.9% 250 ML INJ 250 ML IV SCH (10:19)
[2016-12-28 12:00] VITALS: BP 96/53; PULSE 95; RESP 18; TEMP 98; O2SAT 97
== END 2016-12-28 13:14 | DRG 482 ==
LOC: HSDC 07:03 → EDSTATUS 10:00 → HSDI 13:00 → N06B 16:00
PROVIDERS: ADMIT Orthopaedic Surgery Orthopaedic Trauma; ATTEND Orthopaedic Surgery Orthopaedic Trauma
PROC: 0QS704Z Reposition Left Upper Femur with Internal Fixation Device, Open Approach (ICD-10-PCS; principal; 2016-12-26 11:25)
DX: M97.02XA Periprosthetic fracture around internal prosthetic left hip joint, initial encounter (principal); F41.9 Anxiety disorder, unspecified; F10.10 Alcohol abuse, uncomplicated
CPT/HCPCS: 73552; 76000; 80048; 85014; 85018; 85025; 85610; 86850; 86900; 86901; 86920; 93005; C1713; C1769; J0131; J0690; J1100; J1170; J1580; J2175; J2270; J2370; J2405; J2710; J3010; J3370; J7050; J7120; L1830